=== PATIENT | male | born 1965 | race Caucasian/White ===

== ENCOUNTER 2017-03-06 16:56 | Emergency (ER) | payer BC, OTHER ==
[~2017-03-06] VITALS: Ht 172.7 cm; Wt 93.0 kg
[2017-03-06 17:40] VITALS: BP_SYST 133
[2017-03-06] MEDS ORDERED: NACL 0.9% 1,000 ML IV ONE (18:00)
[2017-03-06] MEDS ORDERED: PROCHLORPERAZINE EDISYLATE 10 MG/2 ML VIAL IVP ONE (18:00)
[2017-03-06] MEDS ORDERED: DIPHENHYDRAMINE INJ 50 MG/ML VIAL IVP ONE (18:00)
[2017-03-06] MEDS ORDERED: PANTOPRAZOLE SODIUM 40 MG/VIAL (PROTONIX) IVP ONE (18:00)
[2017-03-06] MEDS ORDERED: LORazepam 2 MG/ML VIAL (FOR ER USE) ONE (19:28)
[2017-03-06] MEDS ORDERED: LORazepam 2 MG/ML VIAL IVP ONE (19:30)
== END 2017-03-06 20:52 | disposition home or self-care (01) ==
LOC: SED 16:56
DX: G43.909 Migraine, unspecified, not intractable, without status migrainosus (principal); R10.84 Generalized abdominal pain
CPT/HCPCS: 70450; 74020; 96361; 96374; 96375; 99285; C9113; J0780; J1200; J2060; J7030

== ENCOUNTER 2017-04-11 16:27 | Inpatient (IN) | payer BC ==
[~2017-04-11] VITALS: Ht 172.7 cm; Wt 91.7 kg
[2017-04-11 16:34] VITALS: BP_SYST 128
[2017-04-11] MEDS ORDERED: NACL 0.9% 1,000 ML IV ONE (17:30)
[2017-04-11 17:58] LABS: BASOPHILS # (AUTO) 0.1 K/uL (0.0-0.2); BASOPHILS % (AUTO) 0.8 % (0.0-2.0); EOSINOPHILS # (AUTO) 0.2 K/uL (0.0-0.4); EOSINOPHILS % (AUTO) 2.6 % (0.0-4.0); HEMOGLOBIN 14.1 g/dL (14.0-18.0); LYMPHOCYTES # (AUTO) 1.9 K/uL (1.0-5.5); LYMPHOCYTES % (AUTO) 20.8 % (20.5-51.5); MEAN CORPUSCULAR HEMOGLOBIN 29 pg (27-31); MEAN CORPUSCULAR HGB CONC 34 % (32-36); MEAN CORPUSCULAR VOLUME 88 fL (79.0-98.0); MONOCYTES # (AUTO) 0.7 K/uL (0.0-1.0); MONOCYTES % (AUTO) 7.5 % (1.7-9.3); NEUTROPHILS # (AUTO) 6.1 K/uL (1.8-7.7); NEUTROPHILS % (AUTO) 68.3 % (40.0-70.0); PLATELET COUNT (AUTO) 352 K/uL (130-430); RED BLOOD CELL COUNT(AUTO) 4.79 MIL/uL (4.2-6.2); RED CELL DISTRIBUTION WIDTH 15.5 % (9.0-15.0)
[2017-04-11 18:07] LABS: CREATININE 1.28 mg/dL (0.55-1.30); POTASSIUM 4.4 mmol/L (3.5-5.1)
[2017-04-11 18:12] LABS: ALBUMIN 3.2 g/dL (3.4-4.8); TOTAL BILIRUBIN 0.5 mg/dL (0.0-1.0)
[2017-04-11 18:20] LABS: INR 1.1 (0.80-1.20); PROTHROMBIN TIME 10.7 SECS (9.5-12.5)
[2017-04-11] MEDS ORDERED: ASPIRIN 325 MG TABLET PO ONE (19:00)
[2017-04-11] MEDS ORDERED: ENOXAPARIN SODIUM 80 MG/0.8 ML SYRINGE SUBCUT ONE (19:00)
[2017-04-11] MEDS ORDERED: NITROGLYCERIN 1 INCH (GM) OINT. TP ONE (19:00)
[2017-04-11] MEDS ORDERED: FUROSEMIDE 40 MG/4 ML VIAL IVP ONE (19:00)
[2017-04-11 19:01] LABS: BILIRUBIN,URINE NEGATIVE (NEGATIVE); BLOOD, URINE NEGATIVE (NEGATIVE); CLARITY/URINE CLEAR (CLEAR); COLOR,URINE YELLOW (YELLOW); GLUCOSE,URINE NEGATIVE (NEGATIVE); KETONES,URINE NEGATIVE (NEGATIVE); LEUKOCYTE ESTERASE ,URINE NEGATIVE (NEGATIVE); NITRITE, URINE NEGATIVE (NEGATIVE); PROTEIN URINE NEGATIVE (NEGATIVE); UROBILINOGEN,URINE 0.2 (0.2-1.0)
[2017-04-11] MEDS ORDERED: ACETAMINOPHEN 325 MG TABLET PO PRN (20:00)
[2017-04-11] MEDS ORDERED: ALBUTEROL SULFATE 0.083% 2.5 MG/3 ML VIAL.NEB INH PRN (20:00)
[2017-04-11] MEDS ORDERED: ONDANSETRON HCL 4 MG/2 ML VIAL IVP PRN (20:00)
[2017-04-11] MEDS ORDERED: MORPHINE 2 MG/ML INJ. SYRINGE IVP PRN (20:00)
[2017-04-11 21:13] VITALS: BP_SYST 115
[2017-04-11] MEDS ORDERED: ALBMDI INH (21:52)
[2017-04-11] MEDS ORDERED: SULF1TAB48 PO (21:52)
[2017-04-11 22:35] VITALS: BP_SYST 115
[2017-04-12 00:57] VITALS: BP_SYST 129
[2017-04-12 07:00] LABS: BASOPHILS # (AUTO) 0.1 K/uL (0.0-0.2); BASOPHILS % (AUTO) 0.9 % (0.0-2.0); EOSINOPHILS # (AUTO) 0.3 K/uL (0.0-0.4); EOSINOPHILS % (AUTO) 2.9 % (0.0-4.0); HEMATOCRIT 41.2 % (36-54); HEMOGLOBIN 13.6 g/dL (14.0-18.0); LYMPHOCYTES # (AUTO) 2.1 K/uL (1.0-5.5); LYMPHOCYTES % (AUTO) 21.7 % (20.5-51.5); MEAN CORPUSCULAR HEMOGLOBIN 29 pg (27-31); MEAN CORPUSCULAR HGB CONC 33 % (32-36); MEAN CORPUSCULAR VOLUME 89 fL (79.0-98.0); MONOCYTES # (AUTO) 0.7 K/uL (0.0-1.0); MONOCYTES % (AUTO) 7.3 % (1.7-9.3); NEUTROPHILS # (AUTO) 6.3 K/uL (1.8-7.7); NEUTROPHILS % (AUTO) 67.2 % (40.0-70.0); PLATELET COUNT (AUTO) 302 K/uL (130-430); RED BLOOD CELL COUNT(AUTO) 4.64 MIL/uL (4.2-6.2); RED CELL DISTRIBUTION WIDTH 16.1 % (9.0-15.0); WHITE BLOOD COUNT (AUTO) 9.5 K/uL (4.8-10.8)
[2017-04-12 07:20] LABS: CALCIUM 8.8 mg/dL (8.4-11.0); CREATININE 1.34 mg/dL (0.55-1.30); POTASSIUM 3.8 mmol/L (3.5-5.1)
[2017-04-12 07:38] LABS: ALBUMIN 2.8 g/dL (3.4-4.8); TOTAL BILIRUBIN 0.8 mg/dL (0.0-1.0)
[2017-04-12 08:09] VITALS: BP_SYST 125
[2017-04-12] MEDS: ASPIRIN 81 MG TAB.CHEW PO SCH (08:44)
[2017-04-12] MEDS ORDERED: FUROSEMIDE 40 MG/4 ML VIAL IVP ONE (11:45)
[2017-04-12] MEDS: LORazepam 1 MG TABLET PO PRN (12:24)
[2017-04-12 12:41] VITALS: BP_SYST 117
[2017-04-12] MEDS ORDERED: DOCUSATE SODIUM 100 MG CAPSULE PO PRN (15:30)
[2017-04-12] MEDS ORDERED: MILK OF MAGNESIA 30 ML UDC PO ONE (15:30)
[2017-04-12] MEDS ORDERED: CARVEDILOL 6.25 MG TABLET (COREG) PO ONE (16:15)
[2017-04-12] MEDS ORDERED: LOSARTAN POTASSIUM 50 MG TABLET (COZAAR) PO ONE (16:15)
[2017-04-12 16:30] VITALS: BP_SYST 129
[2017-04-12 17:54] LABS: BARBITURATE, URINE NEGATIVE (NEG <=200); BENZODIAZEPINE, URINE NEGATIVE (NEG <=150); CANNABINOID, URINE NEGATIVE (NEG <=50); COCAINE, URINE NEGATIVE (NEG <=150); METHAMPHETAMINES SCREEN,URINE NEGATIVE (NEG <=500); OPIATE, URINE NEGATIVE (NEG <=100); PHENCYCLIDINE SCREEN,URINE NEGATIVE (NEG <=25); UR TRICYCLIC ANTIDEPRESSANTS NEGATIVE (NEG <=300); URINE AMPHETAMINE NEGATIVE (NEG <=500); URINE METHADONE NEGATIVE (NEG <=200); URINE OXYCODONE SCREEN NEGATIVE (NEG <=100); URINE PROPOXYPHENE SCREEN NEGATIVE (NEG <=300)
[2017-04-12 20:00] VITALS: BP_SYST 111
[2017-04-12] MEDS ORDERED: CARVEDILOL 6.25 MG TABLET (COREG) PO SCH (21:00)
[2017-04-13] VITALS: BP_SYST 116
[2017-04-13] MEDS: LORazepam 1 MG TABLET PO PRN (01:30)
[2017-04-13 06:58] LABS: BASOPHILS % (AUTO) 0.6 % (0.0-2.0); EOSINOPHILS # (AUTO) 0.2 K/uL (0.0-0.4); EOSINOPHILS % (AUTO) 2.8 % (0.0-4.0); HEMATOCRIT 45.6 % (36-54); HEMOGLOBIN 14.8 g/dL (14.0-18.0); LYMPHOCYTES # (AUTO) 1.8 K/uL (1.0-5.5); LYMPHOCYTES % (AUTO) 21.7 % (20.5-51.5); MEAN CORPUSCULAR HEMOGLOBIN 28 pg (27-31); MEAN CORPUSCULAR HGB CONC 33 % (32-36); MEAN CORPUSCULAR VOLUME 87 fL (79.0-98.0); MONOCYTES # (AUTO) 0.5 K/uL (0.0-1.0); NEUTROPHILS # (AUTO) 5.8 K/uL (1.8-7.7); NEUTROPHILS % (AUTO) 68.9 % (40.0-70.0); PLATELET COUNT (AUTO) 386 K/uL (130-430); RED BLOOD CELL COUNT(AUTO) 5.24 MIL/uL (4.2-6.2); RED CELL DISTRIBUTION WIDTH 15.6 % (9.0-15.0); WHITE BLOOD COUNT (AUTO) 8.3 K/uL (4.8-10.8)
[2017-04-13 07:20] LABS: CALCIUM 9.6 mg/dL (8.4-11.0); CREATININE 1.47 mg/dL (0.55-1.30); POTASSIUM 4.4 mmol/L (3.5-5.1); THYROID STIMULATING HORMONE 1.52 uIu/mL (0.34-4.82); TOTAL BILIRUBIN 0.6 mg/dL (0.0-1.0)
[2017-04-13 08:05] VITALS: BP_SYST 114
[2017-04-13] MEDS: ASPIRIN 81 MG TAB.CHEW PO SCH (08:57)
[2017-04-13] MEDS ORDERED: LOSARTAN POTASSIUM 50 MG TABLET (COZAAR) PO SCH (09:00)
[2017-04-13] MEDS ORDERED: FUROSEMIDE 40 MG/4 ML VIAL IVP SCH (09:00)
[2017-04-13] MEDS ORDERED: CARVEDILOL 12.5 MG TABLET (COREG) PO SCH (09:00)
[2017-04-13 11:56] VITALS: BP_SYST 107
[2017-04-13] MEDS ORDERED: LOSA50TA3 PO (13:11)
[2017-04-13] MEDS ORDERED: CARV12.548 PO (13:11)
[2017-04-13] MEDS ORDERED: FURO-149 PO (13:12)
[2017-04-13] MEDS ORDERED: ASPI-1063 PO (13:12)
[2017-04-13] MEDS ORDERED: LIP20 PO (13:13)
[2017-04-13 13:14] VITALS: BP_SYST 107
== END 2017-04-13 13:30 | disposition home or self-care (01) | DRG 292 ==
LOC: SED 16:27 → STU 20:00 → OBSVTOIN 04-13 09:51
DX: I50.43 Acute on chronic combined systolic (congestive) and diastolic (congestive) heart failure (principal); I42.0 Dilated cardiomyopathy; J44.9 Chronic obstructive pulmonary disease, unspecified; Z87.891 Personal history of nicotine dependence
CPT/HCPCS: 36415; 71045; 80053; 80061; 80307; 81003; 82150-TC; 83605; 83690-TC; 83735-TC; 83880; 84443-TC; 84484; 85025; 85610-TC; 85730-TC; 87040-TC; 93005; 93306; 94640; 96361; 96372; 96374; 99285; G0378; J1650; J1940; J7030

== ENCOUNTER 2017-04-14 11:56 | Emergency (ER) | payer BC ==
[~2017-04-14] VITALS: Ht 172.7 cm; Wt 91.6 kg
[~2017-04-14 11:56] MED LIST: ASPI-1063 PO; CARV12.548 PO; FURO-149 PO; LIP20 PO; LOSA50TA3 PO
[2017-04-14 12:16] VITALS: BP_SYST 95
--- NOTE | 2017-04-14 12:33 | NUR ---
Patient to ER bed 2 to gown for evaluation. Side rails up. Report given to Cole THOMAS.
--- NOTE | 2017-04-14 12:35 | NUR ---
ER at bedside examining patient.
--- NOTE | 2017-04-14 12:37 | NUR ---
Pt presents c/o SOB while laying flat. Pt recently discharged for CHF. Pt has no acute resp distress noted. Pt has clear lung sounds to auscultation. Pt is not tachypnic or tachycardic. Pt admits to snoring.
--- NOTE | 2017-04-14 13:00 | NUR ---
Chest XR done
[2017-04-14 13:27] LABS: CALCIUM 9.5 mg/dL (8.4-11.0); CREATININE 1.4 mg/dL (0.55-1.30)
--- NOTE | 2017-04-14 13:30 | NUR ---
Dr. Mckoen speaking to regarding ED evaluation.
[2017-04-14 14:00] VITALS: BP_SYST 110
--- NOTE | 2017-04-14 14:00 | NUR ---
Patient given written and verbal discharge instructions and verbalizes understanding. ER MD discussed with patient the results and treatment provided. Patient in stable condition. ID arm band removed. No Rx given. Patient educated on pain management and to follow up with PMD. Pain Scale 0. Opportunity for questions provided and answered.
== END 2017-04-14 14:00 | disposition home or self-care (01) ==
LOC: SED 11:56
DX: G47.30 Sleep apnea, unspecified (principal); F41.9 Anxiety disorder, unspecified; Z79.899 Other long term (current) drug therapy
CPT/HCPCS: 36415; 71045; 80048; 83880; 93005; 99285

== ENCOUNTER 2020-09-15 17:13 | Inpatient (IN) | payer BC ==
[~2020-09-15] VITALS: Ht 175.3 cm; Wt 92.6 kg
[~2020-09-15 17:13] MED LIST changes: -ASPI-1063 PO; +ASPI-1393 PO
[2020-09-15 17:21] VITALS: BP_SYST 156
[2020-09-15] MEDS ORDERED: FUROSEMIDE 20 MG/2 ML VIAL IVP ONE (17:45)
[2020-09-15 17:47] LABS: RED BLOOD CELL COUNT(AUTO) 4.88 MIL/uL (4.2-6.2); WHITE BLOOD COUNT (AUTO) 6.8 K/uL (4.8-10.8)
[2020-09-15 17:59] LABS: BASOPHILS # (AUTO) 0.1 K/uL (0.0-0.2); BASOPHILS % (AUTO) 0.9 % (0.0-2.0); EOSINOPHILS # (AUTO) 0.1 K/uL (0.0-0.4); EOSINOPHILS % (AUTO) 0.9 % (0.0-4.0); HEMATOCRIT 44.4 % (36-54); HEMOGLOBIN 14.6 g/dL (14.0-18.0); LYMPHOCYTES # (AUTO) 1.1 K/uL (1.0-5.5); LYMPHOCYTES % (AUTO) 15.8 % (20.5-51.5); MEAN CORPUSCULAR HEMOGLOBIN 30 pg (27-31); MEAN CORPUSCULAR HGB CONC 33 % (32-36); MEAN CORPUSCULAR VOLUME 91 fL (79.0-98.0); MONOCYTES # (AUTO) 0.8 K/uL (0.0-1.0); MONOCYTES % (AUTO) 11.1 % (1.7-9.3); NEUTROPHILS # (AUTO) 4.8 K/uL (1.8-7.7); NEUTROPHILS % (AUTO) 71.3 % (40.0-70.0); PLATELET COUNT (AUTO) 291 K/uL (130-430); RED CELL DISTRIBUTION WIDTH 16.4 % (9.0-15.0)
[2020-09-15 18:05] LABS: CALCIUM 8.8 mg/dL (8.4-11.0); CREATININE 1.37 mg/dL (0.55-1.30); POTASSIUM 4.7 mmol/L (3.5-5.1)
[2020-09-15] MEDS ORDERED: SACU1TAB7 PO (18:14)
[2020-09-15] MEDS ORDERED: POTA-10 PO (18:14)
[2020-09-15] MEDS ORDERED: ALBMDI INH (18:16)
[2020-09-15 18:22] LABS: TOTAL BILIRUBIN 1.1 mg/dL (0.0-1.0)
[2020-09-15] MEDS ORDERED: ASPIRIN 325 MG TABLET PO ONE (18:30)
[2020-09-15] MEDS ORDERED: ACETAMINOPHEN/CODEINE 300 MG-30 MG TABLET PO ONE (18:30)
[2020-09-15] MEDS ORDERED: NITROGLYCERIN 1 INCH (GM) OINT. TP ONE (18:30)
[2020-09-15] MEDS ORDERED: ENOXAPARIN SODIUM 80 MG/0.8 ML SYRINGE SUBCUT ONE (18:30)
[2020-09-15 19:15] LABS: CREATINE KINASE MB 7.2 ng/mL (0-3.6)
[2020-09-15 21:04] VITALS: BP_SYST 127
[2020-09-15] MEDS ORDERED: NALOXONE HCL 0.4 MG/ML AMP (NARCAN) IVP PRN (21:45)
[2020-09-15] MEDS ORDERED: ALBUTEROL SULFATE 0.083% 2.5 MG/3 ML VIAL.NEB INH PRN (21:45)
[2020-09-15] MEDS ORDERED: ACETAMINOPHEN 325 MG TABLET PO PRN (21:45)
[2020-09-15] MEDS ORDERED: *LOVENOX 1MG/KG Q12H/PHARMACY XX ONE (21:45)
[2020-09-15] MEDS ORDERED: MORPHINE 4 MG INJ. 4 MG/ML VIAL IVP PRN (21:45)
[2020-09-15] MEDS ORDERED: HYDROcodone/ACETAMIN 5-325 MG TAB (NORCO/ VICODIN) PO PRN (21:45)
[2020-09-15 22:29] VITALS: BP_SYST 127
[2020-09-15] MEDS ORDERED: ZOLPIDEM TARTRATE 5 MG TABLET PO PRN (22:45)
[2020-09-15] MEDS ORDERED: LOSARTAN POTASSIUM 50 MG TABLET (COZAAR) PO ONE (22:45)
[2020-09-15] MEDS ORDERED: ENOXAPARIN SODIUM 100 MG/ML SYRINGE SUBCUT SCH (23:00)
[2020-09-15] MEDS: NORMAL SALINE 5 ML DISP.SYRIN IVF SCH (23:17)
[2020-09-16 00:20] VITALS: BP_SYST 113
[2020-09-16] MEDS: NORMAL SALINE 5 ML DISP.SYRIN IVF SCH (06:10)
[2020-09-16 06:50] LABS: BASOPHILS # (AUTO) 0.1 K/uL (0.0-0.2); BASOPHILS % (AUTO) 1.1 % (0.0-2.0); EOSINOPHILS # (AUTO) 0.1 K/uL (0.0-0.4); EOSINOPHILS % (AUTO) 1.8 % (0.0-4.0); HEMATOCRIT 43.5 % (36-54); HEMOGLOBIN 14.2 g/dL (14.0-18.0); LYMPHOCYTES # (AUTO) 1.3 K/uL (1.0-5.5); LYMPHOCYTES % (AUTO) 19.8 % (20.5-51.5); MEAN CORPUSCULAR HEMOGLOBIN 30 pg (27-31); MEAN CORPUSCULAR HGB CONC 33 % (32-36); MEAN CORPUSCULAR VOLUME 91 fL (79.0-98.0); MONOCYTES # (AUTO) 0.3 K/uL (0.0-1.0); NEUTROPHILS # (AUTO) 4.8 K/uL (1.8-7.7); NEUTROPHILS % (AUTO) 72.3 % (40.0-70.0); PLATELET COUNT (AUTO) 254 K/uL (130-430); RED BLOOD CELL COUNT(AUTO) 4.79 MIL/uL (4.2-6.2); RED CELL DISTRIBUTION WIDTH 16.9 % (9.0-15.0); WHITE BLOOD COUNT (AUTO) 6.7 K/uL (4.8-10.8)
[2020-09-16 07:05] LABS: ALBUMIN 2.9 g/dL (3.4-4.8); CALCIUM 8.4 mg/dL (8.4-11.0); CREATININE 1.41 mg/dL (0.55-1.30); TOTAL BILIRUBIN 1.9 mg/dL (0.0-1.0)
[2020-09-16] MEDS ORDERED: ALBUTEROL SULFATE 0.083% 2.5 MG/3 ML VIAL.NEB INH PRN (08:00)
[2020-09-16] MEDS ORDERED: ATORVASTATIN 20 MG TABLET PO SCH (09:00)
[2020-09-16] MEDS ORDERED: ASPIRIN 81 MG TABLET(ECOTRIN) PO SCH (09:00)
[2020-09-16] MEDS ORDERED: ENOXAPARIN SODIUM 40 MG/0.4 ML SYRINGE SUBCUT SCH (09:00)
[2020-09-16] MEDS ORDERED: LOSARTAN POTASSIUM 50 MG TABLET (COZAAR) PO SCH (09:00)
[2020-09-16] MEDS ORDERED: CARVEDILOL 12.5 MG TABLET (COREG) PO SCH (09:00)
[2020-09-16] MEDS ORDERED: FUROSEMIDE 40 MG/4 ML VIAL IVP SCH (09:00)
[2020-09-16] MEDS ORDERED: SACUBITRIL/VALSARTAN 24 MG-26 MG 1 TABLET PO SCH (09:00)
[2020-09-16] MEDS ORDERED: FURO-150 PO (19:21)
[2020-09-16] MEDS ORDERED: SACU1TAB PO (19:21)
[2020-09-16] MEDS ORDERED: CARV3.1246 PO (19:21)
== END 2020-09-16 07:55 | disposition left against medical advice (07) | DRG 281 ==
LOC: SED 17:13 → STU 19:45
PROVIDERS: ADMIT Internal Medicine Hospice and Palliative Medicine; ATTEND Internal Medicine Hospice and Palliative Medicine
DX: I21.4 Non-ST elevation (NSTEMI) myocardial infarction (principal); I42.9 Cardiomyopathy, unspecified; I34.0 Nonrheumatic mitral (valve) insufficiency; E78.5 Hyperlipidemia, unspecified; Z53.29 Procedure and treatment not carried out because of patient's decision for other reasons; Z20.822 Contact with and (suspected) exposure to COVID-19; I11.0 Hypertensive heart disease with heart failure; I50.9 Heart failure, unspecified; Z79.82 Long term (current) use of aspirin; Z79.899 Other long term (current) drug therapy
CPT/HCPCS: 36415; 71045; 80053; 82550; 82553; 83880; 84484; 85025; 85379; 93005; 96365; 96375; 99291; G0378; J1650; J1940; J7613

== ENCOUNTER 2020-09-29 11:05 | Emergency (ER) | payer BC, SELFPAY ==
[~2020-09-29] VITALS: Ht 172.7 cm; Wt 90.7 kg
[~2020-09-29 11:05] MED LIST changes: +ALBMDI INH; +CARV3.1246 PO; +FURO-150 PO; +POTA-10 PO; +SACU1TAB PO; +SACU1TAB7 PO
--- NOTE | 2020-09-29 11:11 | NUR ---
Patient to ER bed 07 to gown for evaluation. Side rails up.
[2020-09-29 11:15] VITALS: BP_SYST 119
--- NOTE | 2020-09-29 11:18 | NUR ---
ER at bedside examining patient.
--- NOTE | 2020-09-29 11:18 | NUR ---
ER at bedside examining patient.
--- NOTE | 2020-09-29 11:20 | NUR ---
Pt. brought himself in with Left flank pain 01/06, states has CHF and stage 3 kidney failure, denies any N/V
--- NOTE | 2020-09-29 11:27 | NUR ---
lab here for blood draw
[2020-09-29 11:28] LABS: BILIRUBIN,URINE NEGATIVE (NEGATIVE); BLOOD, URINE NEGATIVE (NEGATIVE); CLARITY/URINE CLEAR (CLEAR); COLOR,URINE YELLOW (YELLOW); GLUCOSE,URINE NEGATIVE (NEGATIVE); KETONES,URINE NEGATIVE (NEGATIVE); LEUKOCYTE ESTERASE ,URINE NEGATIVE (NEGATIVE); NITRITE, URINE NEGATIVE (NEGATIVE); PH,URINE 5.5 (5.0-8.0); PROTEIN URINE NEGATIVE (NEGATIVE); UROBILINOGEN,URINE 0.2 (0.2-1.0)
[2020-09-29] MEDS ORDERED: MORPHINE 4 MG INJ. 4 MG/ML VIAL IM ONE (11:30)
--- NOTE | 2020-09-29 11:43 | NUR ---
pt. back from CT scan
[2020-09-29 11:47] LABS: BASOPHILS # (AUTO) 0.2 K/uL (0.0-0.2); BASOPHILS % (AUTO) 1.4 % (0.0-2.0); EOSINOPHILS # (AUTO) 0.1 K/uL (0.0-0.4); EOSINOPHILS % (AUTO) 0.5 % (0.0-4.0); HEMATOCRIT 47.5 % (36-54); HEMOGLOBIN 15.5 g/dL (14.0-18.0); LYMPHOCYTES # (AUTO) 1.1 K/uL (1.0-5.5); LYMPHOCYTES % (AUTO) 9.9 % (20.5-51.5); MEAN CORPUSCULAR HEMOGLOBIN 30 pg (27-31); MEAN CORPUSCULAR HGB CONC 33 % (32-36); MEAN CORPUSCULAR VOLUME 91 fL (79.0-98.0); MONOCYTES # (AUTO) 0.9 K/uL (0.0-1.0); MONOCYTES % (AUTO) 8.3 % (1.7-9.3); NEUTROPHILS # (AUTO) 8.5 K/uL (1.8-7.7); NEUTROPHILS % (AUTO) 79.9 % (40.0-70.0); PLATELET COUNT (AUTO) 321 K/uL (130-430); RED BLOOD CELL COUNT(AUTO) 5.24 MIL/uL (4.2-6.2); RED CELL DISTRIBUTION WIDTH 17.1 % (9.0-15.0); WHITE BLOOD COUNT (AUTO) 10.7 K/uL (4.8-10.8)
[2020-09-29 11:48] LABS: CALCIUM 8.6 mg/dL (8.4-11.0); CREATININE 1.35 mg/dL (0.55-1.30); POTASSIUM 4.7 mmol/L (3.5-5.1)
[2020-09-29 11:51] LABS: INR 1.1 (0.80-1.20); PROTHROMBIN TIME 11.6 SECS (9.5-12.5)
[2020-09-29 11:54] LABS: ALBUMIN 2.9 g/dL (3.4-4.8); TOTAL BILIRUBIN 0.7 mg/dL (0.0-1.0)
[2020-09-29 11:55] LABS: C-REACTIVE PROTEIN QUANT 1.1 mg/dL (0-0.5)
[2020-09-29] MEDS ORDERED: HYDR-3917 PO (12:33)
[2020-09-29 12:48] VITALS: BP_SYST 119
--- NOTE | 2020-09-29 12:49 | NUR ---
Patient given written and verbal discharge instructions and verbalizes understanding. ER MD discussed with patient the results and treatment provided. Patient in stable condition. ID arm band removed. Rx of [place] given. Patient educated on pain management and to follow up with PMD. Pain Scale 3/10. Opportunity for questions provided and answered. Medication side effect fact sheet provided.
== END 2020-09-29 12:49 | disposition home or self-care (01) ==
LOC: SED 11:05
DX: R10.9 Unspecified abdominal pain (principal); R11.2 Nausea with vomiting, unspecified; I50.9 Heart failure, unspecified; Z79.899 Other long term (current) drug therapy
CPT/HCPCS: 36415; 74176; 76376; 80053; 81003; 82150; 83605; 83690; 85025; 85610; 85730; 86140; 96372; 99284; J2270

== ENCOUNTER 2022-03-25 08:03 | Emergency (ER) | payer BC ==
[~2022-03-25] VITALS: Ht 172.7 cm; Wt 88.5 kg
[~2022-03-25 08:03] MED LIST changes: +HYDR-3917 PO; -POTA-10 PO; +POTA-195 PO
[2022-03-25 08:06] VITALS: BP_SYST 139
[2022-03-25] MEDS ORDERED: HYDROcodone/ACETAMIN 10-325 MG TAB PO ONE (09:00)
[2022-03-25] MEDS ORDERED: KETOROLAC TROMETHAMINE 60 MG/2 ML VIAL IM ONE (09:00)
[2022-03-25 09:46] LABS: BASOPHILS # (AUTO) 0.1 K/uL (0.0-0.2); BASOPHILS % (AUTO) 0.7 % (0.0-2.0); EOSINOPHILS # (AUTO) 0.1 K/uL (0.0-0.4); HEMATOCRIT 42.9 % (36-54); HEMOGLOBIN 14.3 g/dL (14.0-18.0); LYMPHOCYTES # (AUTO) 0.7 K/uL (1.0-5.5); LYMPHOCYTES % (AUTO) 8.5 % (20.5-51.5); MEAN CORPUSCULAR HEMOGLOBIN 32 pg (27-31); MEAN CORPUSCULAR HGB CONC 33 % (32-36); MEAN CORPUSCULAR VOLUME 95 fL (79.0-98.0); MONOCYTES # (AUTO) 0.6 K/uL (0.0-1.0); MONOCYTES % (AUTO) 7.3 % (1.7-9.3); NEUTROPHILS % (AUTO) 82.5 % (40.0-70.0); PLATELET COUNT (AUTO) 255 K/uL (130-430); RED BLOOD CELL COUNT(AUTO) 4.54 MIL/uL (4.2-6.2); RED CELL DISTRIBUTION WIDTH 14.9 % (9.0-15.0); WHITE BLOOD COUNT (AUTO) 8.5 K/uL (4.8-10.8)
[2022-03-25 09:53] LABS: ANION GAP 9 (5-15); CALCIUM 9.2 mg/dL (8.4-11.0); CHLORIDE 105 mmol/L (98-107); CREATININE 0.89 mg/dL (0.55-1.30); GLUCOSE 115 mg/dL (70-99); UREA NITROGEN, BLOOD 14 mg/dL (8-21)
[2022-03-25 10:01] LABS: ALANINE AMINOTRANSFERASE 36 U/L (12-78); ALBUMIN 3.8 g/dL (3.4-4.8); ASPARTATE AMINOTRANSFERASE 32 U/L (10-37); GFR AFRICAN AMERICAN 113 mL/min (>90); TOTAL BILIRUBIN 0.8 mg/dL (0.0-1.0)
[2022-03-25] MEDS ORDERED: IBUP-1971 PO (11:13)
[2022-03-25] MEDS ORDERED: HYDR-3917 PO (11:13)
[2022-03-25 11:19] VITALS: BP_SYST 135
== END 2022-03-25 11:19 | disposition home or self-care (01) ==
LOC: SED 08:03
DX: S22.31XA Fracture of one rib, right side, initial encounter for closed fracture (principal); Z79.899 Other long term (current) drug therapy; W11.XXXA Fall on and from ladder, initial encounter; Y93.89 Activity, other specified; Y92.89 Other specified places as the place of occurrence of the external cause; Y99.8 Other external cause status
CPT/HCPCS: 99285; 71250; 80053; 85025; 84484; 36415; 93005; 76376; 96372; J1885

== ENCOUNTER 2022-04-11 07:38 | Inpatient (IN) | payer BC ==
[~2022-04-11] VITALS: Ht 172.7 cm; Wt 88.9 kg
[~2022-04-11 07:38] MED LIST changes: +IBUP-1971 PO
[2022-04-11 07:42] VITALS: BP_SYST 152
--- NOTE | 2022-04-11 07:45 | NUR ---
Patient to ER bed 03 to gown for evaluation. Side rails up. Report given to Milagros THOMAS .
--- NOTE | 2022-04-11 07:56 | NUR ---
Dr Carey evaluating patient at bedside
--- NOTE | 2022-04-11 08:00 | NUR ---
JERE JOLLEY EXAMINED PT
--- NOTE | 2022-04-11 08:05 | NUR ---
PT PRESENTS TO ED BYSELF, ACCORDING TO PT DIFFICULTY BREATHING SINCE 4PM YESTERDAY, COUGHING HURTS, PT HAS HX OF PE BLOOD CLOT TO HEART STATED BY PT. PT IS HAVING MODERATE TACHYPNEA, IS NOW ON 2LPM NC. PT DOES NOT USE O2 AT HOME. BP IS NORMAL HR IS NORMAL VSS.
[2022-04-11 08:40] LABS: BASOPHILS # (AUTO) 0.1 K/uL (0.0-0.2); BASOPHILS % (AUTO) 0.9 % (0.0-2.0); EOSINOPHILS % (AUTO) 0.2 % (0.0-4.0); HEMATOCRIT 39.2 % (36-54); HEMOGLOBIN 13.1 g/dL (14.0-18.0); LYMPHOCYTES # (AUTO) 0.5 K/uL (1.0-5.5); LYMPHOCYTES % (AUTO) 7.1 % (20.5-51.5); MEAN CORPUSCULAR HEMOGLOBIN 32 pg (27-31); MEAN CORPUSCULAR HGB CONC 33 % (32-36); MEAN CORPUSCULAR VOLUME 95 fL (79.0-98.0); MONOCYTES # (AUTO) 0.8 K/uL (0.0-1.0); MONOCYTES % (AUTO) 11.4 % (1.7-9.3); NEUTROPHILS # (AUTO) 5.9 K/uL (1.8-7.7); NEUTROPHILS % (AUTO) 80.4 % (40.0-70.0); PLATELET COUNT (AUTO) 238 K/uL (130-430); RED BLOOD CELL COUNT(AUTO) 4.15 MIL/uL (4.2-6.2); RED CELL DISTRIBUTION WIDTH 14.8 % (9.0-15.0); WHITE BLOOD COUNT (AUTO) 7.4 K/uL (4.8-10.8)
[2022-04-11 08:46] LABS: CALCIUM 8.7 mg/dL (8.4-11.0); CREATININE 1.03 mg/dL (0.55-1.30)
[2022-04-11 08:48] LABS: INR 1.1 (0.80-1.20)
[2022-04-11 08:50] LABS: ALBUMIN 3.4 g/dL (3.4-4.8); TOTAL BILIRUBIN 1.4 mg/dL (0.0-1.0)
[2022-04-11] MEDS ORDERED: iohexoL 350 mgI/mL, 100 ML INFUS..BTL IV ONE (08:59)
--- NOTE | 2022-04-11 09:00 | NUR ---
PT TO CT
--- NOTE | 2022-04-11 09:13 | NUR ---
BACK FROM CT, BREAKFAST GIVEN PT RESTING COMFORTBLY, PT HOOKED BACK UP TO BP,HEART AND SPO2 MONITOR. WILL CONT TO MONITOR.
[2022-04-11] MEDS ORDERED: cefTRIAXone 1 GM IVPB PREMIX 50 ML IV ONE (09:45)
--- NOTE | 2022-04-11 10:30 | NUR ---
DR VARELA AT BEDSIDE
--- NOTE | 2022-04-11 10:48 | NUR ---
DR JEFFRIES EVALUATING PT AT BEDSIDE
[2022-04-11] MEDS: HYDROcodone/ACETAMIN 5-325 MG TAB (NORCO/ VICODIN) PO PRN ×4 (10:53→19:16)
--- NOTE | 2022-04-11 11:56 | NUR ---
ECHO BEING DONE AT BEDSIDE, TOLERATING WELL.
[2022-04-11] MEDS: AZITHROMYCIN 500 MG in NS 250 ML IV SCH (15:15)
--- NOTE | 2022-04-11 15:23 | NUR ---
PT ASLEEP NO COMPLAINTS, VSS
[2022-04-11] MEDS ORDERED: APIXABAN 2.5 MG TABLET PO ONE (15:30)
[2022-04-11] MEDS ORDERED: AZITHROMYCIN 500 MG/VIAL (ZITHROMAX) IV ONE (16:47)
[2022-04-11 17:31] VITALS: BP_SYST 126
--- NOTE | 2022-04-11 18:14 | NUR ---
DINNER TRAY GIVEN
--- NOTE | 2022-04-11 18:19 | NUR ---
pt vss stable, pt has dinner tray, pt is c/o right rib sharp pain 9/10. pt requesting pain medication but is not due until q8 as order. page center out to hospitalist to change or update prn for pt. waiting for call back and will continue to monitor pt. no other complaints from pt besides the pain.
[2022-04-11] MEDS: IPRATROPIUM/ALBUTEROL SULFATE 3 ML AMPUL.NEB (DUONEB) INH SCH ×2 (19:00→23:38)
--- NOTE | 2022-04-11 19:22 | NUR ---
REPORT PASSED ONTO TOSHIA THOMAS
[2022-04-11] MEDS: BUDESONIDE 0.5 MG/2 ML AMPUL.NEB INH SCH (20:41)
[2022-04-11] MEDS: APIXABAN 2.5 MG TABLET PO SCH (20:51)
[2022-04-11 20:53] VITALS: BP_SYST 135
[2022-04-11] MEDS ORDERED: FUROSEMIDE 20 MG TABLET PO SCH (21:00)
--- NOTE | 2022-04-11 21:15 | NUR ---
Shift Summary: patient is AAOX4. vitals are stable. patient arrived to unit approx. 2030. patient updated on plan of care. patient states he has no questions or concerns at this time. patient requested for sleep medication. Dr. Desai paged regarding patient request. Dr. Desai placed orders for restoril 15mg prn for sleep. patient informed to use call light if patient needs to get up for any reason due to patient a high fall risk. patient states he understands. will continue to monitor. call light within reach, bed set to low, locked, and alarm on .
[2022-04-11] MEDS: TEMAZEPAM 15 MG CAPSULE PO PRN (21:54)
[2022-04-12] VITALS: BP_SYST 129
[2022-04-12] MEDS: IPRATROPIUM/ALBUTEROL SULFATE 3 ML AMPUL.NEB (DUONEB) INH SCH ×6 (03:00→23:00)
[2022-04-12] MEDS: HYDROcodone/ACETAMIN 5-325 MG TAB (NORCO/ VICODIN) PO PRN ×3 (03:16→19:48)
[2022-04-12] MEDS: BUDESONIDE 0.5 MG/2 ML AMPUL.NEB INH SCH ×2 (07:38→19:59)
[2022-04-12 07:54] VITALS: BP_SYST 125
[2022-04-12 08:00] VITALS: BP_SYST 125
[2022-04-12] MEDS: APIXABAN 2.5 MG TABLET PO SCH ×2 (08:17→21:20)
[2022-04-12] MEDS: cefTRIAXone 1 GM in D5W 50 ML IV SCH (08:18)
[2022-04-12] MEDS ORDERED: ALBUTEROL SULFATE 0.083% 2.5 MG/3 ML VIAL.NEB INH PRN (08:30)
[2022-04-12 08:33] LABS: BASOPHILS # (AUTO) 0.1 K/uL (0.0-0.2); BASOPHILS % (AUTO) 0.5 % (0.0-2.0); EOSINOPHILS % (AUTO) 0.3 % (0.0-4.0); HEMATOCRIT 38.4 % (36-54); HEMOGLOBIN 12.8 g/dL (14.0-18.0); LYMPHOCYTES # (AUTO) 0.8 K/uL (1.0-5.5); LYMPHOCYTES % (AUTO) 8.2 % (20.5-51.5); MEAN CORPUSCULAR HEMOGLOBIN 32 pg (27-31); MEAN CORPUSCULAR HGB CONC 33 % (32-36); MEAN CORPUSCULAR VOLUME 96 fL (79.0-98.0); MONOCYTES # (AUTO) 0.8 K/uL (0.0-1.0); MONOCYTES % (AUTO) 8.1 % (1.7-9.3); NEUTROPHILS # (AUTO) 7.8 K/uL (1.8-7.7); NEUTROPHILS % (AUTO) 82.9 % (40.0-70.0); PLATELET COUNT (AUTO) 227 K/uL (130-430); RED CELL DISTRIBUTION WIDTH 14.7 % (9.0-15.0); WHITE BLOOD COUNT (AUTO) 9.4 K/uL (4.8-10.8)
[2022-04-12 08:38] LABS: CALCIUM 8.7 mg/dL (8.4-11.0); CREATININE 1.02 mg/dL (0.55-1.30)
[2022-04-12 08:43] LABS: ALBUMIN 3.1 g/dL (3.4-4.8); TOTAL BILIRUBIN 1.3 mg/dL (0.0-1.0)
[2022-04-12] MEDS ORDERED: ATORVASTATIN 20 MG TABLET PO ONE (08:45)
[2022-04-12] MEDS ORDERED: CARV6.2554 PO (08:48)
[2022-04-12] MEDS ORDERED: ROSU10TA2 PO (08:48)
[2022-04-12] MEDS ORDERED: ESCI10TA PO (08:48)
[2022-04-12] MEDS ORDERED: APIX5TAB PO (08:48)
[2022-04-12] MEDS: SACUBITRIL/VALSARTAN 24 MG-26 MG 1 TABLET PO SCH ×2 (09:00→21:17)
[2022-04-12] MEDS ORDERED: FUROSEMIDE 40 MG TABLET PO ONE (09:00)
[2022-04-12] MEDS ORDERED: cefTRIAXone 1 GM in D5W 50 ML IV SCH (09:00)
[2022-04-12] MEDS ORDERED: CARVEDILOL 6.25 MG TABLET (COREG) PO ONE (09:00)
[2022-04-12] MEDS ORDERED: CARVEDILOL 6.25 MG TABLET (COREG) PO SCH (09:00)
[2022-04-12 13:00] VITALS: BP_SYST 119
[2022-04-12] MEDS: AZITHROMYCIN 500 MG in NS 250 ML IV SCH (16:07)
[2022-04-12 16:16] VITALS: BP_SYST 123
[2022-04-12 20:00] VITALS: BP_SYST 119
--- NOTE | 2022-04-12 20:00 | NUR ---
INITIAL NOTES: PT IS AWAKE ,COMFORTABLE;VITALS ARE STABLE ; ASSESSMENT COMPLETED ;ON O2 2.5 L AT THIS TIME SAT 94% , BED IN LOW AND LOCK POSITION , CALL LYNNE IN REACH ; ENCOURAGED PT TO CALL FOR ASSIST .
--- NOTE | 2022-04-12 21:15 | NUR ---
DUE MEDS GIVEN , PT STATED" PLEASE DONT WAKE ME UNTIL 4 O CLOCK , INFORMED HIM THAT RN HAS TO ASSESS HIS VITALS AFTER 12 MN , PT STATED " NO , PLEASE DO IT AFTER 4 AM ".
[2022-04-12] MEDS: CARVEDILOL 6.25 MG TABLET (COREG) PO SCH (21:18)
[2022-04-12] MEDS: TEMAZEPAM 15 MG CAPSULE PO PRN (21:20)
--- NOTE | 2022-04-12 23:15 | NUR ---
RN ROUNDS: PTS TELEMONITOR WAS OFF , WENT TO FIX IT PT WAS NOT HAPPY , INFORMED HIM THE NEED TO FIX IT , PT REQUESTED AGAIN NOT TO WAKE HIM UP UNTIL MORNING .
--- NOTE | 2022-04-13 00:30 | NUR ---
RN ROUNDS: NOTICED PTS NASAL CANNULA IS NOT ON , WAKE UP THE PT AND PLACE O2 BACK , PT WAS NOT HAPPY , PT REFUSED TO CHECK HIS VITALS .
[2022-04-13] MEDS: IPRATROPIUM/ALBUTEROL SULFATE 3 ML AMPUL.NEB (DUONEB) INH SCH ×3 (03:00→11:28)
--- NOTE | 2022-04-13 04:20 | NUR ---
PT CALLED : PT CALLED AND STATED HE WANTS TO LEAVE AGAINST MEDICAL ADVICE , I WENT TO THE ROOM AND TALKED WITH THE PT , PT STATED HE COULDN'T ABLE TO SLEEP FOR THE LAST 2 NIGHT EVERY HR SOMEONE IS COMING AND DISTURB HIS SLEEP , ALSO PT STATED SOME ONE IS SLAMMING THE DOOR OUTSIDE , INFORMED HIM THAT THOSE DOORS ARE AUTOMATIC DOORS AND CLOSE BY ITSELF .ALSO PT STATED HE NEEDS SOMETHING FOR HIS ANXIETY AND PAIN , I APOLOGIZED TO HIM FOR THE INCONVENIENCE , INFORMED HIM THAT HE NEEDS TO BE ON ANTIBIOTICS FOR HIS INFECTION AND HE IS CURRENTLY ON O2 2.5 L , INFORMED HIM I WILL CALL THE MD AND ASK FOR ANXIETY MEDICATION.AND WILL GIVE PAIN MEDICATION .PT AGREED TO IT . PT IS RECEIVING BREATHING TREATMENT NOW .
--- NOTE | 2022-04-13 04:24 | NUR ---
HIGH ALERT NOTE: Called ISAAK Moraes back at [phone] identified within the medical roster to verify physician authenticity.
[2022-04-13] MEDS: HYDROcodone/ACETAMIN 5-325 MG TAB (NORCO/ VICODIN) PO PRN (04:29)
[2022-04-13] MEDS ORDERED: LORazepam 1 MG TABLET PO ONE (04:30)
[2022-04-13 04:32] VITALS: BP_SYST 108
--- NOTE | 2022-04-13 07:45 | NUR ---
CLOSING NOTES: PT REFUSED TO DO LABS PER FILLER LEAF CUTTER LONG PER TECH PT ASKED HIM TO COME BACK AT 10 AM . DAY SHIFT RN MADE AWARE.
[2022-04-13] MEDS: BUDESONIDE 0.5 MG/2 ML AMPUL.NEB INH SCH (07:52)
--- NOTE | 2022-04-13 07:55 | NUR ---
Patient received awake and alert, able to communicate needs. On tele, SR on monitor. Patient has no edema to extremities. Patient received on 2.5 - 2L nasal canula, tolerating well. Patient is continent GI/. Patient is ambulatory without assistive device with steady gait. Patient verbalized wanting to no be disturbed. Patient verified he refused AM labs as it was too early. Patient denies pain at this time.
[2022-04-13 08:00] VITALS: BP_SYST 102
[2022-04-13] MEDS ORDERED: ATORVASTATIN 20 MG TABLET PO SCH (09:00)
[2022-04-13] MEDS ORDERED: FUROSEMIDE 40 MG TABLET PO SCH (09:00)
[2022-04-13] MEDS: cefTRIAXone 1 GM in D5W 50 ML IV SCH (09:59)
[2022-04-13] MEDS: CARVEDILOL 6.25 MG TABLET (COREG) PO SCH (10:00)
--- NOTE | 2022-04-13 10:00 | NUR ---
Patient removed nasal canula, denies sob/ respiratory distress. 94% on room air
[2022-04-13] MEDS: APIXABAN 2.5 MG TABLET PO SCH (10:01)
[2022-04-13] MEDS: SACUBITRIL/VALSARTAN 24 MG-26 MG 1 TABLET PO SCH (10:01)
[2022-04-13 10:23] LABS: BASOPHILS % (AUTO) 0.5 % (0.0-2.0); EOSINOPHILS # (AUTO) 0.1 K/uL (0.0-0.4); HEMATOCRIT 36.6 % (36-54); HEMOGLOBIN 12.4 g/dL (14.0-18.0); LYMPHOCYTES # (AUTO) 0.6 K/uL (1.0-5.5); MEAN CORPUSCULAR HEMOGLOBIN 32 pg (27-31); MEAN CORPUSCULAR HGB CONC 34 % (32-36); MEAN CORPUSCULAR VOLUME 95 fL (79.0-98.0); MONOCYTES # (AUTO) 0.5 K/uL (0.0-1.0); MONOCYTES % (AUTO) 6.2 % (1.7-9.3); NEUTROPHILS # (AUTO) 6.2 K/uL (1.8-7.7); NEUTROPHILS % (AUTO) 83.3 % (40.0-70.0); PLATELET COUNT (AUTO) 231 K/uL (130-430); RED BLOOD CELL COUNT(AUTO) 3.85 MIL/uL (4.2-6.2); RED CELL DISTRIBUTION WIDTH 14.7 % (9.0-15.0); WHITE BLOOD COUNT (AUTO) 7.4 K/uL (4.8-10.8)
[2022-04-13 10:52] LABS: ALBUMIN 2.8 g/dL (3.4-4.8); CALCIUM 8.7 mg/dL (8.4-11.0); CREATININE 0.81 mg/dL (0.55-1.30); TOTAL BILIRUBIN 0.8 mg/dL (0.0-1.0)
[2022-04-13 12:00] VITALS: BP_SYST 109
[2022-04-13] MEDS ORDERED: AMOX500C2 PO (14:24)
[2022-04-13] MEDS ORDERED: ZIT250 PO (14:24)
--- NOTE | 2022-04-13 14:26 | NUR ---
Patient requested to ambulate on room air with pulse oximeter monitoring. Ambulated with patient for x1 lap around the unit. Patient O2 sat remained 94 %
[2022-04-13 14:38] VITALS: BP_SYST 109
--- NOTE | 2022-04-13 15:15 | NUR ---
Discharge order noted. Discharge packet reviewed with patient at bedside. Discussed follow up care, s/sx that would warrant return to ER, new/continued/stopped medications, diet/activity and hygiene recommendations. Discussed at length abstinence from alcohol and abstaining from high fall risk situations like ladder climbing. Patient verbalized understanding and participated actively in teaching. Verbalized he does not drink "hard liquor" only beer. Educated on alcohol of any kind impairing motor function and cognitive thinking. IV removed with catheter intact. ID wrist band removed. Patient informed son and about discharge. Patient ambulated to exit with author of this note with steady gait, and no respiratory distress noted. Patient was picked up with spouse. All questions/concerns addressed
== END 2022-04-13 15:10 | disposition home or self-care (01) | DRG 205 ==
LOC: SED 07:38 → STU 12:18
PROVIDERS: ADMIT Specialist; ATTEND Specialist
DX: S27.321A Contusion of lung, unilateral, initial encounter (principal); I50.43 Acute on chronic combined systolic (congestive) and diastolic (congestive) heart failure; J18.9 Pneumonia, unspecified organism; J96.01 Acute respiratory failure with hypoxia; R04.2 Hemoptysis; I42.0 Dilated cardiomyopathy; S29.9XXA Unspecified injury of thorax, initial encounter; I11.0 Hypertensive heart disease with heart failure; E78.5 Hyperlipidemia, unspecified; K76.0 Fatty (change of) liver, not elsewhere classified; E66.9 Obesity, unspecified; I34.0 Nonrheumatic mitral (valve) insufficiency; I36.1 Nonrheumatic tricuspid (valve) insufficiency; X58.XXXA Exposure to other specified factors, initial encounter; I10 Essential (primary) hypertension; Z20.822 Contact with and (suspected) exposure to COVID-19; Z86.711 Personal history of pulmonary embolism; Z79.01 Long term (current) use of anticoagulants; Z79.891 Long term (current) use of opiate analgesic; Z79.1 Long term (current) use of non-steroidal anti-inflammatories (NSAID); Z79.899 Other long term (current) drug therapy; Z79.82 Long term (current) use of aspirin; Z68.29 Body mass index [BMI] 29.0-29.9, adult; Y93.89 Activity, other specified; Y92.89 Other specified places as the place of occurrence of the external cause; Y99.8 Other external cause status
CPT/HCPCS: 36415; 71045; 71275; 76376; 80053; 83605; 83880; 85025; 85610-TC; 85730-TC; 87040; 93005; 93306; 94640; 94760; 99285; G0378; J0456; J0696; J7050; J7060; J7613; J7626; Q9967

== ENCOUNTER 2022-04-22 02:52 | Inpatient (IN) | payer BC ==
[~2022-04-22] VITALS: Ht 175.3 cm; Wt 89.8 kg
[~2022-04-22 02:52] MED LIST changes: -ALBMDI INH; +AMOX500C2 PO; +APIX5TAB PO; -ASPI-1393 PO; -CARV12.548 PO; -CARV3.1246 PO; +CARV6.2554 PO; +ESCI10TA PO; -FURO-149 PO; -HYDR-3917 PO; -IBUP-1971 PO; -LIP20 PO; -LOSA50TA3 PO; +ROSU10TA2 PO; -SACU1TAB PO; +ZIT250 PO
[2022-04-22 03:03] VITALS: BP_SYST 133
--- NOTE | 2022-04-22 03:05 | NUR ---
Patient to ER bed 08 to gown for evaluation. Side rails up. Report given to MARTHA ENGLISH.
--- NOTE | 2022-04-22 03:05 | NUR ---
Received report from MARTHA Gonzalez; assuming care of patient at this time.
--- NOTE | 2022-04-22 03:06 | NUR ---
CHRISTIANA Casas at bedside.
--- NOTE | 2022-04-22 03:06 | NUR ---
Patient presents to ED from home with c/o SOB, abd bloating, and swelling in left leg x1 day. Patient reports pain 6/10 dull localized pain in right side posterior lower back. Patient states "I started having shortness of breath around 7 pm last night and its gotten worse since then." Patient reports hx of CHF, [place] in 2020, EF 30%, PE x2 years ago. Patient A/Ox4, ambulatory, resp even with labored breathing at this time. ER MD Casas made aware.
--- NOTE | 2022-04-22 03:10 | NUR ---
EKG performed at by CHRISTIANA link. ER MD Casas given copy of EKG for review.
--- NOTE | 2022-04-22 03:34 | NUR ---
# 20 gauge angiocath placed to the right AC. Use of asceptic technique. Opsite placed over site. Blood return noted. Flushed with 10 cc of normal saline. No evidence of infiltration noted. Patient tolerated well.
--- NOTE | 2022-04-22 03:36 | NUR ---
Radiology at bedside performing chest xray.
--- NOTE | 2022-04-22 03:51 | NUR ---
Lab at bedside.
[2022-04-22 04:09] LABS: BASOPHILS # (AUTO) 0.1 K/uL (0.0-0.2); BASOPHILS % (AUTO) 2.2 % (0.0-2.0); EOSINOPHILS # (AUTO) 0.1 K/uL (0.0-0.4); HEMATOCRIT 40.2 % (36-54); HEMOGLOBIN 13.5 g/dL (14.0-18.0); LYMPHOCYTES % (AUTO) 20.5 % (20.5-51.5); MEAN CORPUSCULAR HEMOGLOBIN 32 pg (27-31); MEAN CORPUSCULAR HGB CONC 34 % (32-36); MEAN CORPUSCULAR VOLUME 94 fL (79.0-98.0); MONOCYTES # (AUTO) 0.4 K/uL (0.0-1.0); MONOCYTES % (AUTO) 7.7 % (1.7-9.3); NEUTROPHILS # (AUTO) 3.2 K/uL (1.8-7.7); NEUTROPHILS % (AUTO) 66.6 % (40.0-70.0); PLATELET COUNT (AUTO) 361 K/uL (130-430); RED BLOOD CELL COUNT(AUTO) 4.27 MIL/uL (4.2-6.2); RED CELL DISTRIBUTION WIDTH 14.9 % (9.0-15.0); WHITE BLOOD COUNT (AUTO) 4.9 K/uL (4.8-10.8)
[2022-04-22 04:12] LABS: ANION GAP 11 (5-15); CALCIUM 8.8 mg/dL (8.4-11.0); CHLORIDE 103 mmol/L (98-107); CREATININE 0.88 mg/dL (0.55-1.30); GLUCOSE 124 mg/dL (70-99); UREA NITROGEN, BLOOD 15 mg/dL (8-21)
[2022-04-22] MEDS ORDERED: NITROGLYCERIN 1 INCH (GM) OINT. TP ONE (04:15)
[2022-04-22] MEDS ORDERED: cefTRIAXone 1 GM in D5W 50 ML IV ONE (04:15)
[2022-04-22] MEDS ORDERED: FUROSEMIDE 20 MG/2 ML VIAL IVP ONE (04:15)
[2022-04-22 04:18] LABS: GFR AFRICAN AMERICAN 114 mL/min (>90)
[2022-04-22 04:31] LABS: ALANINE AMINOTRANSFERASE 48 U/L (12-78); ALBUMIN 3.4 g/dL (3.4-4.8); ASPARTATE AMINOTRANSFERASE 32 U/L (10-37); TOTAL BILIRUBIN 0.3 mg/dL (0.0-1.0)
[2022-04-22] MEDS ORDERED: cefTRIAXone 1 GM VIAL ONE (04:39)
[2022-04-22] MEDS ORDERED: NITROGLYCERIN 1 INCH (GM) OINT. ONE (04:51)
--- NOTE | 2022-04-22 06:11 | NUR ---
Admit bed requested Patient will be admitted to care of . Admitted to TELE unit. Diagnosis CHF Inpatient (Yes or No) Y Observation (Yes or No) N Orientation concerns or request close to nursing station (Yes or No) N Covid Status NEGATIVE On vent or bipap N Isolation requirements N Needs a sitter N From Home (Yes or if No enter name of facility) HOME Requires Dialysis (Yes or No) N Med Rec Completed (Yes of No) Y
[2022-04-22] MEDS ORDERED: LORazepam 2 MG/ML VIAL IVP ONE (06:15)
--- NOTE | 2022-04-22 07:13 | NUR ---
Report given to MARTHA Fox; all questions answered at this time.
--- NOTE | 2022-04-22 07:15 | NUR ---
RECEIVED PT FROM MARTHA ENGLISH. ASSUMED CARE.
--- NOTE | 2022-04-22 07:38 | NUR ---
REQUESTED PT MEDICATION LIST. PT STATED IT IS NOT AVAILABLE TO HIM AT THIS TIME. HE WILL HAVE A FAMILY MEMBER BRING IT TO THE HOSPITAL LATER.
--- NOTE | 2022-04-22 09:40 | NUR ---
DR. BOOKER MET WITH AND ASSESSED PT.
[2022-04-22] MEDS ORDERED: IPRATROPIUM/ALBUTEROL SULFATE 3 ML AMPUL.NEB (DUONEB) INH PRN (09:45)
--- NOTE | 2022-04-22 09:48 | NUR ---
MED REC COMPLETED.
[2022-04-22 09:54] VITALS: BP_SYST 129
--- NOTE | 2022-04-22 10:30 | NUR ---
SCHEDULED MED GIVEN AND TOLERATED WELL.
--- NOTE | 2022-04-22 10:40 | NUR ---
ADMISSION: The patient, JV CRUZ, 56 y/o, M admitted by YAHAIRA MCBRIDE MD, was given written information regarding hospital policies, unit procedures and contact persons. Valuables were checked and VS obtained.
--- NOTE | 2022-04-22 10:47 | NUR ---
Patient will be admitted to [facility]. Admitted to TELEMETRY unit. Will go to room 105A. Belongings list completed. Complete and up to date summary report printed. SBAR report to be given at bedside with opportunity for questions.
[2022-04-22 11:14] VITALS: BP_SYST 127
[2022-04-22] MEDS ORDERED: CARVEDILOL 6.25 MG TABLET (COREG) PO ONE (13:00)
--- NOTE | 2022-04-22 13:00 | NUR ---
nurse note patient in bed, eyes closed, respirations even, non labored, bed in low and locked position, call light within reach, bed alarm on. denies any pain or discomfort
[2022-04-22 15:51] VITALS: BP_SYST 128
--- NOTE | 2022-04-22 17:33 | NUR ---
02 lowered patient O2 down 2L O2 nasal canula. educated patient to inform me if he feels Short of breath, or chest pain. Patient verbalized understanding
--- NOTE | 2022-04-22 17:56 | NUR ---
O2 PATIENT COMPLAINING THAT "IT IS HARDER" FOR HIM TO BREATH SINCE LOWERING O2. INCREASED TO 3L PATIENT REQUESTING ATIVAN FOR SLEEP WILL PAGE
--- NOTE | 2022-04-22 17:58 | NUR ---
PAGED DR JOSE MCBRIDE, PATIENT IS REQUESTING ATIVAN FOR SLEEP. SPOKE WITH CLAUDIA AT THE EXCHANGE
--- NOTE | 2022-04-22 18:15 | NUR ---
SPOKE WITH DR JOSE MCBRIDE REGARDING PATIENTS REQUEST FOR ATIVAN FOR SLEEP. DR DENIED ATIVAN, NEW ORDERS RECEIVED
[2022-04-22] MEDS ORDERED: TEMAZEPAM 7.5 MG CAPSULE PO PRN (18:30)
--- NOTE | 2022-04-22 19:28 | NUR ---
closing note Provided SBAR to nightRN. Patient in bed,respirations even, non labored, bed in low and locked position, call light within reach. Bed alarm on. Endorsed to RN that patient is on fluid restrictions and has 500ml left for the day. IV is saline locked.
--- NOTE | 2022-04-22 19:30 | NUR ---
no distress noted, patient requesting a room transfer due to current roommated, patient transferred to room 118, no distress noted, comfort maintianed, vss, see flow sheet, tele SR
--- NOTE | 2022-04-22 20:39 | NUR ---
Consultation Paged Reason for Consultation: CHF Was consult called: Y Person who was notified: text message Andrew Hilario Consulting Physician: Andrew Hilario Ordering Physician: Luiza Reynaga
[2022-04-22] MEDS: FUROSEMIDE 20 MG TABLET PO SCH (20:56)
[2022-04-22] MEDS: CARVEDILOL 6.25 MG TABLET (COREG) PO SCH (20:57)
[2022-04-22 20:59] VITALS: BP_SYST 120
[2022-04-22] MEDS ORDERED: FUROSEMIDE 20 MG/2 ML VIAL IVP SCH (21:00)
[2022-04-23] VITALS: BP_SYST 105; BP_SYST 123
--- NOTE | 2022-04-23 04:00 | NUR ---
restoril effective no distress noted, comfort maintained, patient sleeping
--- NOTE | 2022-04-23 05:00 | NUR ---
patient noncompliant and did not use urinal to measure I&0, sob with exertion noted, patient with no coughing at this time, up ad irene, BRP, urinals at bedside, patient voided x2
--- NOTE | 2022-04-23 07:30 | NUR ---
OPENING NOTE Received patient in bed resting. Patient A/O x4, Algerian speaking. Breathing even and unlabored on 3LPM of oxygen. No pain , no sob, no distress on initial assessment. Patient IV to RT AC patent on SL. Patient on Cardiac diet with fluid restrictions, able to feed himself. Patient on BRP put has urinal at bedside for needs. All needs met at this time, bed is locked in lowest position, call light within reach. Safety checks in place, will continue to monitor.
[2022-04-23 08:00] VITALS: BP_SYST 124
[2022-04-23] MEDS: FUROSEMIDE 20 MG TABLET PO SCH (08:30)
[2022-04-23] MEDS: CARVEDILOL 6.25 MG TABLET (COREG) PO SCH (08:31)
[2022-04-23] MEDS ORDERED: LEVO750T64 PO (12:43)
[2022-04-23 13:19] VITALS: BP_SYST 124
--- NOTE | 2022-04-23 14:05 | NUR ---
PATIENT READ AND SIGNED THE DC PAPER. DC PAPER EXPLAINED TO THE PATIENT. PATIENT LEFT WITH HIS BELONGINGS ASSISTED BY HIS SON. IV TAKEN OUT. PATIENT ABLE TO WALK. NO DISTRESS OR DISCOMFORT NOTED. PATIENT IN STABLE CONDITION.
== END 2022-04-23 14:00 | disposition home or self-care (01) | DRG 193 ==
LOC: SED 02:52 → STU 06:08
PROVIDERS: ADMIT Internal Medicine; ATTEND Internal Medicine
DX: J18.9 Pneumonia, unspecified organism (principal); I50.43 Acute on chronic combined systolic (congestive) and diastolic (congestive) heart failure; J96.01 Acute respiratory failure with hypoxia; I42.6 Alcoholic cardiomyopathy; I11.0 Hypertensive heart disease with heart failure; Z20.822 Contact with and (suspected) exposure to COVID-19; I50.9 Heart failure, unspecified; Z79.899 Other long term (current) drug therapy; Z86.711 Personal history of pulmonary embolism
CPT/HCPCS: 36415; 71045; 80053; 83880; 84484; 85025; 85379; 87081; 93005; 94760; 96365; 96375; 97110-GP; 97116-GP; 97530-GP; 99291; G0378; J0696; J1940; J1956; J2060

== ENCOUNTER 2022-05-08 18:53 | Emergency (ER) | payer BC ==
[~2022-05-08] VITALS: Ht 172.7 cm; Wt 88.5 kg
[~2022-05-08 18:53] MED LIST changes: +LEVO750T64 PO
[2022-05-08 19:05] VITALS: BP_SYST 127
--- NOTE | 2022-05-08 19:30 | NUR ---
LWBS 193
== END 2022-05-08 19:30 | disposition left against medical advice (07) ==
LOC: SED 18:53
DX: R06.02 Shortness of breath (principal); R19.7 Diarrhea, unspecified; R07.9 Chest pain, unspecified; Z53.21 Procedure and treatment not carried out due to patient leaving prior to being seen by health care provider
CPT/HCPCS: 93005

== ENCOUNTER 2022-05-09 10:35 | Inpatient (IN) | payer BC ==
[~2022-05-09] VITALS: Ht 172.7 cm; Wt 93.9 kg
--- NOTE | 2022-05-09 10:38 | NUR ---
BIB EMS FROM HOME WITH C/O SEVERE CHEST AND ABN PAIN - 01/06. PT STATES HE WAS HERE LAST NIGHT FOR SIMILAR SYMPTOMS. PT STATES HE HAS HAD THESE SYMPTOMS FOR THE PAST TWO WEEKS. PT HAS HAD PROBLEMS PASSING URINE. PT HAS ALSO HAD DIARRHEA FOR THE PAST 15 DAYS. HX - NM, HYPERLIP. PT IS AAX04, VS STABLE, NAD NOTED, BREATHING EVEN AND UNLABORED ON RA, PT DENIES N/V/D, PT ON MERCHANDISE STOCKER SHOW NSR. PENDING MD BUSCH AND ORDERS.
[2022-05-09 10:40] VITALS: BP_SYST 132
--- NOTE | 2022-05-09 10:40 | NUR ---
AT BEDSIDE EXAMINING THE PT.
[2022-05-09] MEDS ORDERED: NITROGLYCERIN 1 INCH (GM) OINT. TP ONE (10:47)
[2022-05-09] MEDS ORDERED: MORPHINE 4 MG INJ. 4 MG/ML VIAL IVP ONE (10:47)
[2022-05-09] MEDS ORDERED: ASPIRIN 325 MG TABLET PO ONE (11:00)
[2022-05-09 11:11] LABS: BASOPHILS % (AUTO) 0.5 % (0.0-2.0); EOSINOPHILS # (AUTO) 0.1 K/uL (0.0-0.4); HEMATOCRIT 41.5 % (36-54); HEMOGLOBIN 14.1 g/dL (14.0-18.0); LYMPHOCYTES # (AUTO) 0.6 K/uL (1.0-5.5); LYMPHOCYTES % (AUTO) 7.6 % (20.5-51.5); MEAN CORPUSCULAR HEMOGLOBIN 32 pg (27-31); MEAN CORPUSCULAR HGB CONC 34 % (32-36); MEAN CORPUSCULAR VOLUME 94 fL (79.0-98.0); MONOCYTES # (AUTO) 0.7 K/uL (0.0-1.0); MONOCYTES % (AUTO) 8.9 % (1.7-9.3); NEUTROPHILS # (AUTO) 6.3 K/uL (1.8-7.7); PLATELET COUNT (AUTO) 235 K/uL (130-430); RED BLOOD CELL COUNT(AUTO) 4.42 MIL/uL (4.2-6.2); RED CELL DISTRIBUTION WIDTH 14.6 % (9.0-15.0); WHITE BLOOD COUNT (AUTO) 7.6 K/uL (4.8-10.8)
[2022-05-09 11:27] LABS: ANION GAP 9 (5-15); CHLORIDE 106 mmol/L (98-107); CREATININE 1.08 mg/dL (0.55-1.30); GLUCOSE 130 mg/dL (70-99); UREA NITROGEN, BLOOD 14 mg/dL (8-21)
[2022-05-09 11:29] LABS: GFR AFRICAN AMERICAN 90 mL/min (>90)
[2022-05-09 11:41] LABS: ALANINE AMINOTRANSFERASE 49 U/L (12-78); ALBUMIN 3.5 g/dL (3.4-4.8); ASPARTATE AMINOTRANSFERASE 51 U/L (10-37); TOTAL BILIRUBIN 1.2 mg/dL (0.0-1.0)
--- NOTE | 2022-05-09 12:12 | NUR ---
Note undone in EDM - 05/09/22 at 1218 by [id number] BIB EMS FROM HOME WITH C/O SEVERE CHEST AND ABN PAIN - 01/06. PT STATES HE WAS HERE LAST NIGHT FOR SIMILAR SYMPTOMS. PT STATES HE HAS HAD THESE SYMPTOMS FOR THE PAST TWO WEEKS. PT HAS HAD PROBLEMS PASSING URINE. PT HAS ALSO HAD DIARRHEA FOR THE PAST 15 DAYS. HX - RI, HYPERLIP. PT IS AAX04, VS STABLE, NAD NOTED, BREATHING EVEN AND UNLABORED ON RA, PT DENIES N/V/D, PT ON OPEN CLAIMS REPRESENTATIVE SHOW NSR. PENDING MD BUSCH AND ORDERS.
[2022-05-09] MEDS ORDERED: metroNIDAZOLE 500 mg/NS 100 ML IV ONE (12:30)
--- NOTE | 2022-05-09 15:58 | NUR ---
covid swab collected at bedside
--- NOTE | 2022-05-09 17:05 | NUR ---
ADMISSION PATIENT TRANSFERRED FROM ER VIA GURNEY. PATIENT HAS COMPLAINTS OF PAIN AT THIS TIME. TUBE CLOSING MACHINE OPERATOR IS AT BEDSIDE. PATIENT EDUCATED SUPERVISOR FILTRATION LIGHT FOR ASSISTANCE. CALL LIGHT IS WITH HIM PATIENT HAS SPOUSE AT BEDSIDE.
[2022-05-09 17:13] VITALS: BP_SYST 127
--- NOTE | 2022-05-09 17:15 | NUR ---
REPORT GIVEN TO TONY THOMAS FOR CONTIUNITY OF CARE. ALL QUESTIONS AND CONCERNS ADDRESSED. ALL CARE ENDORSED.
[2022-05-09] MEDS: MORPHINE 4 MG INJ. 4 MG/ML VIAL IVP PRN ×2 (17:36→21:46)
--- NOTE | 2022-05-09 19:01 | NUR ---
RN CLOSING NOTE PATIENT IS SITTING UP IN BED EATING DINNER. NO COMPLAINTS AT THIS TIME. CALL LIGHT IS WITH HIM EDUCATED TO USE FOR ASSISTANCE. PATIENT HAS FAMILY AT BED SIDE. PATIENT HAS NO OTHER NEEDS AT THIS TIME.
[2022-05-09 19:20] VITALS: BP_SYST 127
--- NOTE | 2022-05-09 19:20 | NUR ---
PM ASSESSMENT; - Patient is awake, alert, oriented X 4. Patient oriented to hospital room, call light, toileting, pain management and safety-teach back done. VSS. IV site patent flushed well w/ NS, no s/s any infiltration noted. Side rails x2,Call light within reach. Cont to monitor pt.
[2022-05-09] MEDS ORDERED: ROSUVASTATIN CALCIUM 5 MG/TAB (CRESTOR) PO SCH (20:00)
[2022-05-09] MEDS: FUROSEMIDE 20 MG TABLET PO SCH ×2 (20:59→21:05)
[2022-05-09] MEDS: SACUBITRIL/VALSARTAN 24 MG-26 MG 1 TABLET PO SCH (21:00)
[2022-05-09] MEDS: CARVEDILOL 6.25 MG TABLET (COREG) PO SCH (21:00)
[2022-05-09 23:00] VITALS: BP_SYST 125
[2022-05-10] MEDS ORDERED: TEMAZEPAM 7.5 MG CAPSULE PO PRN (01:00)
--- NOTE | 2022-05-10 01:12 | NUR ---
ROUNDS; -Pt is c/o that he can't sleep. Gave Restoril 15mg po for sleep. Call light w/in reach. Cont to monitor pt.
--- NOTE | 2022-05-10 06:25 | NUR ---
CLOSING NOTES; -Pt is resting in bed comfortably. No s/s any acute distress noted. Pt's condition stable. Side rails x2,Call light within reach. will endorse to day shift nurse to cont care.
[2022-05-10] MEDS: MORPHINE 4 MG INJ. 4 MG/ML VIAL IVP PRN ×4 (06:56→21:06)
[2022-05-10 07:55] LABS: ALBUMIN 3.4 g/dL (3.4-4.8); CALCIUM 9.2 mg/dL (8.4-11.0); CREATININE 0.95 mg/dL (0.55-1.30); TOTAL BILIRUBIN 1.2 mg/dL (0.0-1.0)
[2022-05-10 08:01] LABS: BASOPHILS % (AUTO) 0.8 % (0.0-2.0); EOSINOPHILS # (AUTO) 0.2 K/uL (0.0-0.4); EOSINOPHILS % (AUTO) 3.2 % (0.0-4.0); HEMATOCRIT 40.2 % (36-54); HEMOGLOBIN 13.3 g/dL (14.0-18.0); LYMPHOCYTES # (AUTO) 0.9 K/uL (1.0-5.5); LYMPHOCYTES % (AUTO) 16.4 % (20.5-51.5); MEAN CORPUSCULAR HEMOGLOBIN 32 pg (27-31); MEAN CORPUSCULAR HGB CONC 33 % (32-36); MEAN CORPUSCULAR VOLUME 95 fL (79.0-98.0); MONOCYTES # (AUTO) 0.6 K/uL (0.0-1.0); NEUTROPHILS # (AUTO) 3.9 K/uL (1.8-7.7); NEUTROPHILS % (AUTO) 69.6 % (40.0-70.0); PLATELET COUNT (AUTO) 210 K/uL (130-430); RED BLOOD CELL COUNT(AUTO) 4.22 MIL/uL (4.2-6.2); RED CELL DISTRIBUTION WIDTH 14.3 % (9.0-15.0); WHITE BLOOD COUNT (AUTO) 5.7 K/uL (4.8-10.8)
--- NOTE | 2022-05-10 08:10 | NUR ---
Initial Received patient awake in bed, A/Ox4. Respiration even and unlabored, no c/o of pain/SOB/chest discomfort. IV to left forearm patent. All safety precaution secured, bed in low position and call light w/in reached.
[2022-05-10 08:42] VITALS: BP_SYST 138
[2022-05-10 08:50] VITALS: BP_SYST 120
[2022-05-10] MEDS: ATORVASTATIN 20 MG TABLET PO SCH (08:56)
[2022-05-10] MEDS: FUROSEMIDE 20 MG TABLET PO SCH ×2 (08:57→21:04)
[2022-05-10] MEDS: CARVEDILOL 6.25 MG TABLET (COREG) PO SCH ×2 (08:57→21:04)
[2022-05-10] MEDS: SACUBITRIL/VALSARTAN 24 MG-26 MG 1 TABLET PO SCH ×2 (08:58→21:05)
[2022-05-10 12:30] VITALS: BP_SYST 124
[2022-05-10 16:25] VITALS: BP_SYST 121
--- NOTE | 2022-05-10 18:55 | NUR ---
Patient stable, resting in bed no c/o pain/SOB/ chest discomfort, no signs of distress. IV saline lock patent, maintain safety precaution throughout my shift, will endorse.
--- NOTE | 2022-05-10 19:30 | NUR ---
PM ASSESSMENT; - Patient is awake, alert, oriented X 4. Patient oriented to hospital room, call light, toileting, pain management and safety-teach back done. IV site patent flushed well w/ NS, no s/s any infiltration noted. Side rails x2,Call light within reach. Cont to monitor pt.
[2022-05-10 19:40] VITALS: BP_SYST 124
[2022-05-10] MEDS ORDERED: ZOLPIDEM TARTRATE 5 MG TABLET PO PRN (22:00)
[2022-05-10 23:40] VITALS: BP_SYST 118; BP_SYST 123
--- NOTE | 2022-05-10 23:40 | NUR ---
NOTES; -Pt awakes, requests milk but told pt that we don't have in fridge. VSS. Pt use 2L nc oxy when during sleep. Call light w/in reach. Cont to monitor pt.
--- NOTE | 2022-05-11 04:14 | NUR ---
ROUNDS; -Pt removed a telemetry box multiple times. He stated," I had a bad dream that I don't remember it." Placed telemetry electrodes on pt and cont to monitor pt. Addendum: 05/11/22 at 0421 by [employer] MARTHA Kapadia RN Additional notes; Will endorse in am shift for md to discontinue Gaby heart pt stated that it must be the side effect of Ambien.
[2022-05-11 07:36] VITALS: BP_SYST 109
[2022-05-11 08:16] LABS: BASOPHILS # (AUTO) 0.1 K/uL (0.0-0.2); EOSINOPHILS # (AUTO) 0.2 K/uL (0.0-0.4); HEMATOCRIT 40.9 % (36-54); HEMOGLOBIN 13.8 g/dL (14.0-18.0); LYMPHOCYTES # (AUTO) 0.8 K/uL (1.0-5.5); LYMPHOCYTES % (AUTO) 16.1 % (20.5-51.5); MEAN CORPUSCULAR HEMOGLOBIN 32 pg (27-31); MEAN CORPUSCULAR HGB CONC 34 % (32-36); MEAN CORPUSCULAR VOLUME 95 fL (79.0-98.0); MONOCYTES # (AUTO) 0.6 K/uL (0.0-1.0); MONOCYTES % (AUTO) 11.8 % (1.7-9.3); NEUTROPHILS # (AUTO) 3.4 K/uL (1.8-7.7); NEUTROPHILS % (AUTO) 67.1 % (40.0-70.0); PLATELET COUNT (AUTO) 219 K/uL (130-430); RED BLOOD CELL COUNT(AUTO) 4.32 MIL/uL (4.2-6.2); RED CELL DISTRIBUTION WIDTH 14.9 % (9.0-15.0)
[2022-05-11] MEDS: ATORVASTATIN 20 MG TABLET PO SCH (08:42)
[2022-05-11] MEDS: SACUBITRIL/VALSARTAN 24 MG-26 MG 1 TABLET PO SCH (08:43)
[2022-05-11] MEDS: FUROSEMIDE 20 MG TABLET PO SCH (08:44)
[2022-05-11] MEDS: CARVEDILOL 6.25 MG TABLET (COREG) PO SCH (08:46)
[2022-05-11] MEDS: MORPHINE 4 MG INJ. 4 MG/ML VIAL IVP PRN ×2 (08:56→15:04)
[2022-05-11 09:07] LABS: CALCIUM 9.3 mg/dL (8.4-11.0); CREATININE 0.85 mg/dL (0.55-1.30); TOTAL BILIRUBIN 0.8 mg/dL (0.0-1.0)
[2022-05-11 09:08] LABS: ALBUMIN 3.4 g/dL (3.4-4.8)
--- NOTE | 2022-05-11 10:55 | NUR ---
Dietitian Recommendations * Continue Na2 diet * Send double portions; RD entered in [employer] * Prune juice 1x/day; RD entered in [employer] GS, MPH, RD Please refer to RD Assessment for further details. Thanks! Addendum: 05/11/22 at [address] Amended: Links added.
[2022-05-11 12:24] VITALS: BP_SYST 105
--- NOTE | 2022-05-11 15:50 | NUR ---
Patient left against medical advice states " I cannot wait for Doctor, I want to go home to watch the football game. IV saline lock removed, patient signed form and exist the building.
== END 2022-05-11 15:45 | disposition left against medical advice (07) | DRG 313 ==
LOC: SED 10:35 → STU 13:18
PROVIDERS: ADMIT Specialist; ATTEND Specialist
DX: R07.9 Chest pain, unspecified (principal); I13.0 Hypertensive heart and chronic kidney disease with heart failure and stage 1 through stage 4 chronic kidney disease, or unspecified chronic kidney disease; I42.9 Cardiomyopathy, unspecified; E78.5 Hyperlipidemia, unspecified; K76.0 Fatty (change of) liver, not elsewhere classified; I25.10 Atherosclerotic heart disease of native coronary artery without angina pectoris; K57.90 Diverticulosis of intestine, part unspecified, without perforation or abscess without bleeding; F10.10 Alcohol abuse, uncomplicated; Y90.9 Presence of alcohol in blood, level not specified; I50.9 Heart failure, unspecified; N18.9 Chronic kidney disease, unspecified; Z20.822 Contact with and (suspected) exposure to COVID-19; Z79.899 Other long term (current) drug therapy; I25.2 Old myocardial infarction; Z53.29 Procedure and treatment not carried out because of patient's decision for other reasons
CPT/HCPCS: 36415; 71045; 76376; 80053; 83605; 83735; 83880; 84484; 85025; 87040; 87081; 93005; 96374; 99285; G0378; J2270; J3490

== ENCOUNTER 2022-05-19 18:22 | Inpatient (IN) | payer BC ==
[~2022-05-19] VITALS: Ht 172.7 cm; Wt 93.9 kg
[2022-05-19 18:25] VITALS: BP_SYST 132
--- NOTE | 2022-05-19 19:22 | NUR ---
Patient to ER bed 02 to gown for evaluation. Side rails up.
[2022-05-19] MEDS ORDERED: MORPHINE 4 MG INJ. 4 MG/ML VIAL IM ONE (19:30)
--- NOTE | 2022-05-19 19:30 | NUR ---
MD Carey at bedside examining pt.
--- NOTE | 2022-05-19 20:04 | NUR ---
Pt medicated as ordered; tolerated well.
[2022-05-19 20:06] LABS: BASOPHILS # (AUTO) 0.1 K/uL (0.0-0.2); BASOPHILS % (AUTO) 1.4 % (0.0-2.0); EOSINOPHILS % (AUTO) 0.6 % (0.0-4.0); HEMATOCRIT 38.7 % (36-54); LYMPHOCYTES # (AUTO) 1.3 K/uL (1.0-5.5); LYMPHOCYTES % (AUTO) 17.8 % (20.5-51.5); MEAN CORPUSCULAR HEMOGLOBIN 32 pg (27-31); MEAN CORPUSCULAR HGB CONC 34 % (32-36); MEAN CORPUSCULAR VOLUME 94 fL (79.0-98.0); MONOCYTES # (AUTO) 0.7 K/uL (0.0-1.0); MONOCYTES % (AUTO) 9.5 % (1.7-9.3); NEUTROPHILS # (AUTO) 5.1 K/uL (1.8-7.7); NEUTROPHILS % (AUTO) 70.7 % (40.0-70.0); PLATELET COUNT (AUTO) 279 K/uL (130-430); RED BLOOD CELL COUNT(AUTO) 4.14 MIL/uL (4.2-6.2); RED CELL DISTRIBUTION WIDTH 14.3 % (9.0-15.0); WHITE BLOOD COUNT (AUTO) 7.2 K/uL (4.8-10.8)
[2022-05-19 20:14] LABS: ANION GAP 9 (5-15); CALCIUM 8.3 mg/dL (8.4-11.0); CHLORIDE 107 mmol/L (98-107); CREATININE 1.06 mg/dL (0.55-1.30); GLUCOSE 97 mg/dL (70-99); UREA NITROGEN, BLOOD 12 mg/dL (8-21)
[2022-05-19 20:17] LABS: GFR AFRICAN AMERICAN 92 mL/min (>90); PROTHROMBIN TIME 10.1 SECS (9.5-12.5)
[2022-05-19 20:20] LABS: ALANINE AMINOTRANSFERASE 62 U/L (12-78); ALBUMIN 3.6 g/dL (3.4-4.8); AMYLASE 33 U/L (0-100); ASPARTATE AMINOTRANSFERASE 53 U/L (10-37); LACTATE DEHYDROGENASE 219 U/L (85-227); LIPASE 243 U/L (73-393); TOTAL BILIRUBIN 0.5 mg/dL (0.0-1.0)
[2022-05-19 20:24] LABS: C-REACTIVE PROTEIN QUANT < 0.2 mg/dL (0-0.5)
[2022-05-19 20:45] LABS: CKMB RELATIVE INDEX 1.5 (0.0-2.9); CREATINE KINASE MB 6.8 ng/mL (0-3.6)
[2022-05-19 21:08] LABS: ACETONE, SERUM NEGATIVE (NEGATIVE)
[2022-05-19] MEDS ORDERED: ASPIRIN 81 MG TABLET(ECOTRIN) PO ONE (21:15)
--- NOTE | 2022-05-19 22:01 | NUR ---
Admit bed requested Patient will be admitted to care of Dr. Millan Admitted to Telemetry Observation unit. Diagnosis Elevated troponin, CHF, Abdominal Pain Inpatient (Yes or No) no Observation (Yes or No) yes Orientation concerns or request close to nursing station (Yes or No) no Covid Status pending On vent or bipap no Isolation requirements no Needs a sitter no From Home (Yes or if No enter name of facility) yes Requires Dialysis (Yes or No) no Med Rec Completed (Yes of No) yes
[2022-05-19] MEDS ORDERED: ONDANSETRON HCL 4 MG/2 ML VIAL IVP ONE (23:45)
[2022-05-19] MEDS ORDERED: MORPHINE 4 MG INJ. 4 MG/ML VIAL IVP ONE (23:45)
--- NOTE | 2022-05-20 00:03 | NUR ---
MRSA SAMPLE COLLECTED AND SENT TO LAB
--- NOTE | 2022-05-20 00:06 | NUR ---
# 20 gauge angiocath placed to R AC. Use of asceptic technique. Opsite placed over site. Blood return noted. Flushed with 10 cc of normal saline. No evidence of infiltration noted. Patient tolerated well.
--- NOTE | 2022-05-20 00:40 | NUR ---
Admission Note Received patient from ER with diagnosis of elevated troponin, chf, abdominal pain. Initial Plan of Care discussed-patient verbalized understanding. Oriented to room, call light, pain management and safety.
[2022-05-20 00:49] VITALS: BP_SYST 132
--- NOTE | 2022-05-20 02:53 | NUR ---
Patient reports feeling anxious, notified dr. camacho orders ativan 0.5mg q12hr PRn for anxiety order repeated back and confirmed
[2022-05-20] MEDS ORDERED: LORazepam 2 MG/ML VIAL ONE (03:04)
[2022-05-20] MEDS: LORazepam 2 MG/ML VIAL IVP PRN (03:04)
--- NOTE | 2022-05-20 06:00 | NUR ---
CONSULTATION PAGED/CALLED Reason for Consultation: ELEVATED TROP Person Who was Notified: MARKIE Consulting Physician:MERVIN Ultra Sound Technician Specialty: Ordering Physician: REED
[2022-05-20] MEDS ORDERED: ESCITALOPRAM OXALATE 10 MG TABLET PO PRN (07:15)
--- NOTE | 2022-05-20 07:26 | NUR ---
CLOSING NOTES Patient resting in bed - no s/s pain or distress noted. Respirations even and unlabored - head of bed elevated. IV site patent - no s/s redness, infection, or infiltration. bed locked and in lowest position. Call light within reach.
[2022-05-20] MEDS ORDERED: CITALOPRAM HYDROBROMIDE 20 MG TABLET PO PRN (07:30)
[2022-05-20 08:00] VITALS: BP_SYST 117
[2022-05-20] MEDS ORDERED: NON-FORMULARY MEDICATION (Sacubitril/Valsartan (Entresto 49 mg-51 mg Tablet) 1 EACH) PO SCH (09:00)
[2022-05-20] MEDS ORDERED: FUROSEMIDE 40 MG/4 ML VIAL IVP SCH (09:00)
[2022-05-20] MEDS: CARVEDILOL 6.25 MG TABLET (COREG) PO SCH ×2 (11:03→20:52)
[2022-05-20] MEDS: APIXABAN 2.5 MG TABLET PO SCH ×2 (11:04→20:47)
[2022-05-20] MEDS ORDERED: MORPHINE 2 MG/ML INJ. SYRINGE IVP PRN (14:00)
[2022-05-20] MEDS ORDERED: NALOXONE HCL 0.4 MG/ML AMP (NARCAN) IVP PRN (14:00)
[2022-05-20 16:00] VITALS: BP_SYST 117
--- NOTE | 2022-05-20 17:58 | NUR ---
CONSULTATION PAGED/CALLED Reason for Consultation: gi Person Who was Notified: emilio Consulting Physician: aaliyah sosa Ordering Physician: gonzalo camacho
--- NOTE | 2022-05-20 18:45 | NUR ---
Mr Zheng has been assessed as indicated. He has been successfully treated for pain x2 this shift. He c/o abdominal pain after dinner. He ambulates with out assistance around the nursing unit as well as in his room. He can make his needs known and is resting quietly at this time
[2022-05-20] MEDS: 0.45% NACL 1,000 ML IV SCH (19:02)
[2022-05-20] MEDS: MORPHINE 2 MG/ML INJ. SYRINGE IVP PRN (19:02)
--- NOTE | 2022-05-20 19:30 | NUR ---
Handoff has been given to Sandy
--- NOTE | 2022-05-20 19:30 | NUR ---
CHANGE OF SHIFT; endorsed by day shift. no acue distress. came in for abdominal pain/CHf/ elevated troponin. call light within reach.
[2022-05-20 20:00] VITALS: BP_SYST 135; BP_SYST 138
--- NOTE | 2022-05-20 20:30 | NUR ---
NOTES: pt. ambulated to the restroom. On 3 liters O2 /nc. IV infusing via rt. arm. on bus driver/monitor and shows sinus tach. call light jovani joseph.
[2022-05-20] MEDS: SACUBITRIL/VALSARTAN 24 MG-26 MG 1 TABLET PO SCH (20:52)
--- NOTE | 2022-05-20 21:00 | NUR ---
NOTES: due medications given.
--- NOTE | 2022-05-20 22:00 | NUR ---
NOTES: report given to nurse Brody.in stable condition.
[2022-05-21 00:08] VITALS: BP_SYST 117
[2022-05-21] MEDS: MORPHINE 2 MG/ML INJ. SYRINGE IVP PRN ×5 (00:51→22:50)
[2022-05-21 01:03] LABS: ALBUMIN 3.2 g/dL (3.4-4.8); CALCIUM 8.5 mg/dL (8.4-11.0); CREATININE 1.15 mg/dL (0.55-1.30)
[2022-05-21 06:58] LABS: BASOPHILS # (AUTO) 0.1 K/uL (0.0-0.2); BASOPHILS % (AUTO) 0.9 % (0.0-2.0); EOSINOPHILS # (AUTO) 0.1 K/uL (0.0-0.4); EOSINOPHILS % (AUTO) 1.8 % (0.0-4.0); HEMATOCRIT 35.9 % (36-54); HEMOGLOBIN 12.1 g/dL (14.0-18.0); LYMPHOCYTES # (AUTO) 0.9 K/uL (1.0-5.5); LYMPHOCYTES % (AUTO) 14.2 % (20.5-51.5); MEAN CORPUSCULAR HEMOGLOBIN 32 pg (27-31); MEAN CORPUSCULAR HGB CONC 34 % (32-36); MEAN CORPUSCULAR VOLUME 95 fL (79.0-98.0); MONOCYTES # (AUTO) 0.7 K/uL (0.0-1.0); MONOCYTES % (AUTO) 11.3 % (1.7-9.3); NEUTROPHILS # (AUTO) 4.3 K/uL (1.8-7.7); NEUTROPHILS % (AUTO) 71.8 % (40.0-70.0); PLATELET COUNT (AUTO) 230 K/uL (130-430); RED BLOOD CELL COUNT(AUTO) 3.79 MIL/uL (4.2-6.2); RED CELL DISTRIBUTION WIDTH 14.3 % (9.0-15.0)
[2022-05-21 08:00] VITALS: BP_SYST 101
[2022-05-21] MEDS: APIXABAN 2.5 MG TABLET PO SCH ×2 (08:28→21:10)
[2022-05-21] MEDS: CARVEDILOL 6.25 MG TABLET (COREG) PO SCH ×2 (08:29→21:07)
[2022-05-21] MEDS: SACUBITRIL/VALSARTAN 24 MG-26 MG 1 TABLET PO SCH ×2 (08:30→21:16)
[2022-05-21] MEDS: FUROSEMIDE 40 MG TABLET PO SCH (08:31)
--- NOTE | 2022-05-21 09:30 | NUR ---
TELEPHONE CALL FROM LAB REPORTING MRSA NARES POSITIVE. CHARGE NURSE MADE AWARE, WILL NOTIFY
--- NOTE | 2022-05-21 10:50 | NUR ---
o2 decreased from 4lpm via nc to 2 lpm, sao2 95%, sob observed upon exertion
[2022-05-21] MEDS ORDERED: DIATR MEGLU/DIATRIZ SOD 30 ML SOLUTION PO ONE (11:05)
[2022-05-21 11:20] VITALS: BP_SYST 106
--- NOTE | 2022-05-21 11:36 | NUR ---
patient c/o 8/10 abdominal pain and sob, no dyspnea observed, SaO2 @ 96% on 2lpm o2 via nc, administered prn iv morphine per emar
--- NOTE | 2022-05-21 13:24 | NUR ---
PATIENT TRANSPORTED TO HAVE CT DONE
[2022-05-21] MEDS: 0.45% NACL 1,000 ML IV SCH ×2 (13:30→20:59)
--- NOTE | 2022-05-21 15:00 | NUR ---
patient currently on RA, no respiratory distress noted, sao2 96%
[2022-05-21 15:33] VITALS: BP_SYST 115
--- NOTE | 2022-05-21 18:28 | NUR ---
Patient reports no bm x 3 days, abdomen distended and firm, awaiting for orders from Dr. Desai
[2022-05-21 20:00] VITALS: BP_SYST 149
--- NOTE | 2022-05-21 20:00 | NUR ---
Received Patient in room, he his able to ambulate in room without assist, no signs of distress or discomfort noted, Patient present with attention seeking behavior and is very manipulative, Patient removed Tele monitor upon nurses arrival to the room to check on Patient's safety he state he needed his anxiety medication, Patient was educated on the importance of keeping his Tele monitor on, he verbalized understanding.
[2022-05-21] MEDS: LORazepam 2 MG/ML VIAL IVP PRN (21:09)
--- NOTE | 2022-05-21 23:31 | NUR ---
Patient continues to remove tele monitor, he was educated on the importance of wearing his monitor,Patient is alert and oriented x 4, he verbalizes understanding, will continue to monitor.
[2022-05-22 06:47] LABS: BASOPHILS # (AUTO) 0.1 K/uL (0.0-0.2); BASOPHILS % (AUTO) 1.1 % (0.0-2.0); EOSINOPHILS # (AUTO) 0.2 K/uL (0.0-0.4); EOSINOPHILS % (AUTO) 2.3 % (0.0-4.0); HEMATOCRIT 35.5 % (36-54); HEMOGLOBIN 12.1 g/dL (14.0-18.0); LYMPHOCYTES # (AUTO) 0.8 K/uL (1.0-5.5); LYMPHOCYTES % (AUTO) 11.5 % (20.5-51.5); MEAN CORPUSCULAR HEMOGLOBIN 32 pg (27-31); MEAN CORPUSCULAR HGB CONC 34 % (32-36); MEAN CORPUSCULAR VOLUME 94 fL (79.0-98.0); MONOCYTES # (AUTO) 0.6 K/uL (0.0-1.0); MONOCYTES % (AUTO) 8.1 % (1.7-9.3); NEUTROPHILS # (AUTO) 5.3 K/uL (1.8-7.7); PLATELET COUNT (AUTO) 249 K/uL (130-430); RED BLOOD CELL COUNT(AUTO) 3.75 MIL/uL (4.2-6.2); RED CELL DISTRIBUTION WIDTH 14.2 % (9.0-15.0); WHITE BLOOD COUNT (AUTO) 6.8 K/uL (4.8-10.8)
[2022-05-22 07:30] LABS: ALBUMIN 3.1 g/dL (3.4-4.8); CALCIUM 8.9 mg/dL (8.4-11.0); CREATININE 0.9 mg/dL (0.55-1.30); TOTAL BILIRUBIN 0.9 mg/dL (0.0-1.0)
[2022-05-22 08:00] VITALS: BP_SYST 128
[2022-05-22] MEDS: APIXABAN 2.5 MG TABLET PO SCH ×2 (08:03→21:06)
[2022-05-22] MEDS: CARVEDILOL 6.25 MG TABLET (COREG) PO SCH ×2 (08:12→21:00)
[2022-05-22] MEDS: SACUBITRIL/VALSARTAN 24 MG-26 MG 1 TABLET PO SCH ×2 (08:13→21:00)
[2022-05-22] MEDS: FUROSEMIDE 40 MG TABLET PO SCH (08:13)
[2022-05-22] MEDS: MORPHINE 2 MG/ML INJ. SYRINGE IVP PRN ×3 (09:29→23:01)
--- NOTE | 2022-05-22 09:41 | NUR ---
NEW PIV INITIATED TO LEFT HAND 22G BY USING ASEPTIC TECHNIQUE. FLUSHED WITH 10CC NS, GOOD BLOOD RETURN NOTED. PT TOLERATED WELL. COVERED WITH TRANSPARENT DRESSING.
--- NOTE | 2022-05-22 10:01 | NUR ---
CONSULTATION PAGED REASON FOR CONSULTATION: PROSTATE ISSUES WAS CONSULT CALLED? Y PERSON WHO WAS NOTIFIED: ALDAIR CONSULTING PHYSICIAN: KISHA FARRELL NANNY/HOUSEHOLD MANAGER SPECIALTY: UROLOGY NANNY/HOUSEHOLD MANAGER PHONE NUMBER: [phone] REQUESTING PHYSICIAN: ROSA DALLAS
--- NOTE | 2022-05-22 10:27 | NUR ---
NOTES; URO CALLED, IF BLADDER SCAN SHOWS MORE THAN 300ML, INSERT F/C. BLADDER SCAN SHOWS 47ML. NO DISTENSION/NO PAIN TO LOWER ABD. NO FC INSERTION AT THIS TIME.WILL CONT TO MONITOR.
[2022-05-22] MEDS ORDERED: PANTOPRAZOLE SODIUM 40 MG TAB PO ONE (11:00)
[2022-05-22 11:22] VITALS: BP_SYST 108
[2022-05-22] MEDS: SUCRALFATE 1 GM/10 ML UDC GT SCH ×3 (11:30→21:03)
[2022-05-22] MEDS: metroNIDAZOLE 500 mg/NS 100 ML IV SCH ×2 (14:10→21:09)
[2022-05-22 15:30] VITALS: BP_SYST 110
--- NOTE | 2022-05-22 18:16 | NUR ---
NEW PIV INITIATED TO RIGHT HAND 22G BY USING ASEPTIC TECHNIQUE. FLUSHED WITH 10CC NS, GOOD BLOOD RETURN NOTED. PT TOLERATED WELL. COVERED WITH TRANSPARENT DRESSING.
--- NOTE | 2022-05-22 19:00 | NUR ---
RECEIVED PT IN BED.AOX2.ON RA.NOT IN RESPIRATORY DISTRESS NOTED.BED IN LOWEST POSITION.BEDSIDE TABLE AND CALL LIGHT ARE WITHIN REACH.ALL NEEDS ARE MET AT THIS TIME.
--- NOTE | 2022-05-22 19:21 | NUR ---
CLOSING NOTE; PT RESTING IN BED, BREATHING NON-LABORED AND REGULAR. NO S/S ACUTE DISTRESS OR SOB. IVF RUNNING ORDERED. IV SITE REMAIN INTACT AND CLEAN. NO IV INFILTRATION OR INFECTION NOTED. BED IS LOCKED AND AT LOW POSITION. CALL LIGHT WITHIN REACH. ENDORSED CARE TO PAINT TECHNICIAN NURSE.
[2022-05-22 20:00] VITALS: BP_SYST 124
[2022-05-22] MEDS ORDERED: MUPIROCIN 1 GM OIN.PF.APP NS SCH (21:00)
[2022-05-22] MEDS: LORazepam 2 MG/ML VIAL IVP PRN (21:04)
[2022-05-22] MEDS: MUPIROCIN 2% TOPICAL OINTMENT 22 GM NS SCH (21:05)
--- NOTE | 2022-05-22 22:30 | NUR ---
FOUND PT WANDERING ON THE HALLWAY.PT IV LINE WAS INTACT BUT THE IV TUBING CONNECTED TO INFUSION PUMP WAS PULLED OUT.WHEN PT WAS ASKED THE REASON HE PULLED OUT AND HE SAID HE JUST DON'T WANT IT.ASSESSED PT MENTATION.PT IS AOX2, CONFUSED.REORIENTED TO PLACE AND EVENT.
--- NOTE | 2022-05-22 23:30 | NUR ---
PT IS SO AGITATED AND WAS TRYING TO GET OUT OF THE BED WITHOUT LETTING THE RN KNOW.EDUCATED PT TO INFORM RN FOR ASSISTANCE BECAUSE HE IS CONNECTED TO THE IV.PT IS UNCOOPERATIVE. Addendum: 05/23/22 at 0107 by [facility] MARTHA aKpadia RN EDUCATED PT TO INFORM RN FOR ASSISTANCE BECAUSE HE IS CONNECTED TO THE IV PUMP.
--- NOTE | 2022-05-23 00:43 | NUR ---
PT PULLED OUT HIS IV.PT REFUSED TO BE INSERTED A NEW IV LINE.YAHIR LANGSTON RN.
[2022-05-23 01:11] VITALS: BP_SYST 113
--- NOTE | 2022-05-23 02:00 | NUR ---
PT IS AWAKE WALKING IN HIS BED AND TALKING TO HIMSELF.REORIENTED TO PLACE AND EVENT.
--- NOTE | 2022-05-23 03:00 | NUR ---
OFFERED IV INSERTION BUT PT STILL REFUSED.
[2022-05-23] MEDS: 0.45% NACL 1,000 ML IV SCH (05:28)
[2022-05-23] MEDS: metroNIDAZOLE 500 mg/NS 100 ML IV SCH ×3 (05:29→21:14)
[2022-05-23] MEDS: SUCRALFATE 1 GM/10 ML UDC GT SCH ×4 (06:05→21:16)
--- NOTE | 2022-05-23 06:20 | NUR ---
PT REFUSED TO BE CLEAN, CHANGE GOWN AND LINEN.
[2022-05-23] MEDS: MORPHINE 2 MG/ML INJ. SYRINGE IVP PRN ×3 (07:03→18:54)
--- NOTE | 2022-05-23 07:04 | NUR ---
REINSERTED AN IV ON L HAND G20, PATENT AND INTACT; WITH GOOD BLOOD RETURN.
[2022-05-23 07:05] LABS: BASOPHILS # (AUTO) 0.1 K/uL (0.0-0.2); EOSINOPHILS # (AUTO) 0.2 K/uL (0.0-0.4); EOSINOPHILS % (AUTO) 2.3 % (0.0-4.0); HEMATOCRIT 35.9 % (36-54); HEMOGLOBIN 12.2 g/dL (14.0-18.0); LYMPHOCYTES # (AUTO) 0.9 K/uL (1.0-5.5); LYMPHOCYTES % (AUTO) 14.1 % (20.5-51.5); MEAN CORPUSCULAR HEMOGLOBIN 32 pg (27-31); MEAN CORPUSCULAR HGB CONC 34 % (32-36); MEAN CORPUSCULAR VOLUME 95 fL (79.0-98.0); MONOCYTES # (AUTO) 0.6 K/uL (0.0-1.0); NEUTROPHILS # (AUTO) 4.8 K/uL (1.8-7.7); NEUTROPHILS % (AUTO) 73.6 % (40.0-70.0); PLATELET COUNT (AUTO) 284 K/uL (130-430); RED BLOOD CELL COUNT(AUTO) 3.79 MIL/uL (4.2-6.2); RED CELL DISTRIBUTION WIDTH 14.1 % (9.0-15.0); WHITE BLOOD COUNT (AUTO) 6.5 K/uL (4.8-10.8)
[2022-05-23 07:19] LABS: C-REACTIVE PROTEIN QUANT 3.6 mg/dL (0-0.5); CALCIUM 8.9 mg/dL (8.4-11.0); CREATININE 1.17 mg/dL (0.55-1.30); TOTAL BILIRUBIN 0.8 mg/dL (0.0-1.0)
--- NOTE | 2022-05-23 07:27 | NUR ---
PT IS RESTING IN BED AT THIS TIME.PT IS NOT IN RESPIRATORY DISTRESS.ALL NEEDS ARE MET AT THIS TIME.
[2022-05-23 08:00] VITALS: BP_SYST 118
--- NOTE | 2022-05-23 08:00 | NUR ---
Opening Notes Patient is Aox4, to name, , place, and event. No ss of distress noted. Breathing is even and nonlabored, on room air. Vital signs obtained, as documented. No SOB noted. IV patent. Patient is eating breakfast. All safety precaution in place. Patient educated on fall prevention and safety. call light within reach.
[2022-05-23 08:43] LABS: ERYTHROCYTE SEDIMENTATION RATE 48 MM/HR (0-15)
[2022-05-23] MEDS: TAMSULOSIN HCL 0.4 MG CAP PO SCH (09:28)
[2022-05-23] MEDS: FUROSEMIDE 40 MG TABLET PO SCH (09:29)
[2022-05-23] MEDS: CARVEDILOL 6.25 MG TABLET (COREG) PO SCH ×2 (09:29→21:21)
[2022-05-23] MEDS: PANTOPRAZOLE SODIUM 40 MG TAB PO SCH (09:30)
[2022-05-23] MEDS: APIXABAN 2.5 MG TABLET PO SCH ×2 (09:31→21:16)
[2022-05-23] MEDS: SACUBITRIL/VALSARTAN 24 MG-26 MG 1 TABLET PO SCH ×2 (09:36→21:18)
[2022-05-23] MEDS: MUPIROCIN 2% TOPICAL OINTMENT 22 GM NS SCH ×2 (09:37→21:24)
--- NOTE | 2022-05-23 09:54 | NUR ---
notes Patient stated feels bladder full, urinated about half and hour ago. bladder scan done. approximately about 70 cc of urine residual. Morning medication administered. all safety precautions in place and call light within reach.
[2022-05-23 12:00] VITALS: BP_SYST 129
--- NOTE | 2022-05-23 12:00 | NUR ---
NOTES PATIENT IS EATING LUNCH. NO SS OF DISTRESS NOTED. BREATHING IS EVEN AND NONLABORED. DENIES PAIN. NO FACIAL GRIMACE NOTED. BED IS LOCKED, ALARM ON, AND AT LOWEST POSITION. CALL LIGHT WITHIN REACH.
[2022-05-23 16:00] VITALS: BP_SYST 124
--- NOTE | 2022-05-23 16:30 | NUR ---
NOTES PATIENT IS SITTING IN BED. NO SS OF DISTRESS NOTED. PATIENT DENIES SEVERE PAIN. DENIES SOB. SON AT BEDSIDE. SAFETY PRECAUTIONS IN PLACE AND CALL LIGHT WITHIN REACH.
--- NOTE | 2022-05-23 18:59 | NUR ---
CLOSING NOTES PATIENT IS EATING DINNER. PATIENT REQUEST IVP PAIN MEDICATION- MORPHINE. RN ADMINISTERED IVP MORPHINE. NO SS OF DISTRESS NOTED. BREATHING IS EVEN AND NONLABORED, ON ROOM AIR. NO SOB NOTED. IV PATENT. IVF RUNNING. PATIENT IS STABLE. ALL NEEDS MET. BED IS LOCKED, ALARM ON, AND AT LOWEST POSITION. CALL LIGHT WITHIN REACH.
[2022-05-23 19:55] VITALS: BP_SYST 108
--- NOTE | 2022-05-23 19:55 | NUR ---
RECEIVED PT IN BED,AOX4, DENIED SOB,CP, OR ANY PAIN, EVEN AND UNLABORED BREATHING, AMBULATORY TO RESTROOM, STATED HE'S VOIDING WELL NOW, WILL CONTINUE WITH POC,
[2022-05-23] MEDS: LORazepam 2 MG/ML VIAL IVP PRN (21:27)
[2022-05-24] VITALS: BP_SYST 92
[2022-05-24] MEDS: 0.45% NACL 1,000 ML IV SCH (01:35)
[2022-05-24] MEDS: metroNIDAZOLE 500 mg/NS 100 ML IV SCH (06:06)
[2022-05-24] MEDS: SUCRALFATE 1 GM/10 ML UDC GT SCH ×2 (06:07→11:30)
--- NOTE | 2022-05-24 06:27 | NUR ---
PT IN BED,AOX4, DENIED SOB,CP, OR ANY PAIN, EVEN AND UNLABORED BREATHING, AMBULATORY TO RESTROOM, VOIDING AND HAD BM, NO C/O ABOUT URINE RETENTION DURING SHIFT, SAFETY PREC MAINTAINED, LOW BED, CALL LIGHT WITHIN REACH, WILL ENDORSE TO AM RN
[2022-05-24 07:48] LABS: BASOPHILS % (AUTO) 0.8 % (0.0-2.0); EOSINOPHILS # (AUTO) 0.2 K/uL (0.0-0.4); HEMATOCRIT 35.3 % (36-54); HEMOGLOBIN 12.1 g/dL (14.0-18.0); LYMPHOCYTES # (AUTO) 0.8 K/uL (1.0-5.5); LYMPHOCYTES % (AUTO) 14.4 % (20.5-51.5); MEAN CORPUSCULAR HEMOGLOBIN 32 pg (27-31); MEAN CORPUSCULAR HGB CONC 34 % (32-36); MEAN CORPUSCULAR VOLUME 94 fL (79.0-98.0); MONOCYTES # (AUTO) 0.5 K/uL (0.0-1.0); MONOCYTES % (AUTO) 8.3 % (1.7-9.3); NEUTROPHILS % (AUTO) 72.5 % (40.0-70.0); PLATELET COUNT (AUTO) 273 K/uL (130-430); RED BLOOD CELL COUNT(AUTO) 3.75 MIL/uL (4.2-6.2); RED CELL DISTRIBUTION WIDTH 13.8 % (9.0-15.0); WHITE BLOOD COUNT (AUTO) 5.5 K/uL (4.8-10.8)
[2022-05-24 08:00] VITALS: BP_SYST 125
[2022-05-24 08:09] LABS: ERYTHROCYTE SEDIMENTATION RATE 30 MM/HR (0-15)
[2022-05-24 08:26] LABS: C-REACTIVE PROTEIN QUANT 2.3 mg/dL (0-0.5); CALCIUM 8.6 mg/dL (8.4-11.0); CREATININE 1.1 mg/dL (0.55-1.30)
[2022-05-24] MEDS: SACUBITRIL/VALSARTAN 24 MG-26 MG 1 TABLET PO SCH (09:41)
[2022-05-24] MEDS: FUROSEMIDE 40 MG TABLET PO SCH (09:42)
[2022-05-24] MEDS: TAMSULOSIN HCL 0.4 MG CAP PO SCH (09:42)
[2022-05-24] MEDS: PANTOPRAZOLE SODIUM 40 MG TAB PO SCH (09:42)
[2022-05-24] MEDS: CARVEDILOL 6.25 MG TABLET (COREG) PO SCH (09:43)
[2022-05-24] MEDS: MUPIROCIN 2% TOPICAL OINTMENT 22 GM NS SCH (09:43)
[2022-05-24] MEDS: APIXABAN 2.5 MG TABLET PO SCH (09:44)
[2022-05-24] MEDS ORDERED: PRO40 PO (10:56)
[2022-05-24] MEDS ORDERED: FURO-149 PO (10:56)
[2022-05-24] MEDS ORDERED: TAMS0.4C96 PO (10:56)
[2022-05-24] MEDS ORDERED: LEVO750T64 PO ×2 (10:56)
[2022-05-24] MEDS ORDERED: SUCR1ORA4 GT (10:56)
[2022-05-24] MEDS ORDERED: POTA-195 PO (10:56)
[2022-05-24] MEDS ORDERED: METR-154 PO (10:58)
[2022-05-24 11:21] VITALS: BP_SYST 109
[2022-05-24 13:15] VITALS: BP_SYST 125
--- NOTE | 2022-05-24 14:00 | NUR ---
patient dc home, education provided regarding medication managment, disease process and when to return to hospital,ambulated to [facility] and transported home via private auto
== END 2022-05-24 14:45 | disposition home health service (06) | DRG 391 ==
LOC: SED 18:22 → STU 21:53 → OBSVTOIN 05-21 13:27 → SMU 05-22 13:19
PROVIDERS: ADMIT Specialist; ATTEND Specialist
DX: K57.92 Diverticulitis of intestine, part unspecified, without perforation or abscess without bleeding (principal); J96.00 Acute respiratory failure, unspecified whether with hypoxia or hypercapnia; I42.0 Dilated cardiomyopathy; E87.1 Hypo-osmolality and hyponatremia; I24.8 Other forms of acute ischemic heart disease; I11.0 Hypertensive heart disease with heart failure; K76.0 Fatty (change of) liver, not elsewhere classified; N40.1 Benign prostatic hyperplasia with lower urinary tract symptoms; E78.5 Hyperlipidemia, unspecified; I34.0 Nonrheumatic mitral (valve) insufficiency; I45.9 Conduction disorder, unspecified; E88.09 Other disorders of plasma-protein metabolism, not elsewhere classified; Z20.822 Contact with and (suspected) exposure to COVID-19; I50.9 Heart failure, unspecified; D64.9 Anemia, unspecified; Z86.711 Personal history of pulmonary embolism; Z79.01 Long term (current) use of anticoagulants; Z88.8 Allergy status to other drugs, medicaments and biological substances; Z79.899 Other long term (current) drug therapy
CPT/HCPCS: 36415; 71045; 76376; 80048; 80053; 82009; 82150; 82550; 82553; 83605; 83615; 83690; 83880; 84484; 85025; 85610-TC; 85651-TC; 85730-TC; 86140; 87081; 93005; 96372; 96374; 96375; 97116-GP; 97163-GP; 99285; G0378; J1940; J1956; J2060; J2270; J2405; J3490; Q9964

== ENCOUNTER 2022-05-28 19:50 | Inpatient (IN) | payer BC ==
[~2022-05-28] VITALS: Ht 172.7 cm; Wt 90.7 kg
[~2022-05-28 19:50] MED LIST changes: +FURO-149 PO; +METR-154 PO; +PRO40 PO; +SUCR1ORA4 GT; +TAMS0.4C96 PO
--- NOTE | 2022-05-28 19:50 | NUR ---
Patient to ER bed 08 to gown for evaluation. Side rails up.
[2022-05-28 19:59] VITALS: BP_SYST 171
--- NOTE | 2022-05-28 20:03 | NUR ---
DR. PIZARRO AT BEDSIDE WITH PATIENT FOR MSE.
--- NOTE | 2022-05-28 20:04 | NUR ---
Report given to MARTHA ESTES.
--- NOTE | 2022-05-28 20:12 | NUR ---
# 18 gauge angiocath placed to RAC. Use of asceptic technique. Opsite placed over site. Blood return noted. Blood for lab drawn from site. Flushed with 10 cc of normal saline. No evidence of infiltration noted. Patient tolerated well.
--- NOTE | 2022-05-28 20:12 | NUR ---
Portable x-ray done at bedside.
[2022-05-28] MEDS ORDERED: MORPHINE 4 MG INJ. 4 MG/ML VIAL IVP ONE (20:15)
[2022-05-28] MEDS ORDERED: ONDANSETRON HCL 4 MG/2 ML VIAL IVP ONE (20:15)
[2022-05-28 20:18] LABS: BASOPHILS # (AUTO) 0.1 K/uL (0.0-0.2); BASOPHILS % (AUTO) 1.5 % (0.0-2.0); EOSINOPHILS # (AUTO) 0.1 K/uL (0.0-0.4); HEMATOCRIT 39.4 % (36-54); HEMOGLOBIN 13.1 g/dL (14.0-18.0); LYMPHOCYTES # (AUTO) 0.7 K/uL (1.0-5.5); MEAN CORPUSCULAR HEMOGLOBIN 31 pg (27-31); MEAN CORPUSCULAR HGB CONC 33 % (32-36); MEAN CORPUSCULAR VOLUME 94 fL (79.0-98.0); MONOCYTES # (AUTO) 0.5 K/uL (0.0-1.0); MONOCYTES % (AUTO) 10.2 % (1.7-9.3); NEUTROPHILS # (AUTO) 3.1 K/uL (1.8-7.7); NEUTROPHILS % (AUTO) 69.3 % (40.0-70.0); PLATELET COUNT (AUTO) 306 K/uL (130-430); RED BLOOD CELL COUNT(AUTO) 4.18 MIL/uL (4.2-6.2); RED CELL DISTRIBUTION WIDTH 14.3 % (9.0-15.0); WHITE BLOOD COUNT (AUTO) 4.4 K/uL (4.8-10.8)
--- NOTE | 2022-05-28 20:20 | NUR ---
Patient taken to CT.
--- NOTE | 2022-05-28 20:25 | NUR ---
Patient's back from CT.
[2022-05-28 20:33] LABS: ANION GAP 9 (5-15); CALCIUM 8.9 mg/dL (8.4-11.0); CHLORIDE 106 mmol/L (98-107); CREATININE 1.13 mg/dL (0.55-1.30); GLUCOSE 123 mg/dL (70-99); UREA NITROGEN, BLOOD 16 mg/dL (8-21)
--- NOTE | 2022-05-28 20:34 | NUR ---
Complaining of 9/10 abdominal pain. Morphine 4mg IV and zofran 4mg IV given
[2022-05-28 20:35] LABS: GFR AFRICAN AMERICAN 86 mL/min (>90)
[2022-05-28 20:40] LABS: ALANINE AMINOTRANSFERASE 46 U/L (12-78); ALBUMIN 3.3 g/dL (3.4-4.8); ASPARTATE AMINOTRANSFERASE 33 U/L (10-37); TOTAL BILIRUBIN 0.3 mg/dL (0.0-1.0)
[2022-05-28] MEDS ORDERED: FUROSEMIDE 40 MG/4 ML VIAL IVP ONE (20:45)
--- NOTE | 2022-05-28 21:32 | NUR ---
Medication reconciliation completed with information provided by PATIENT. PATIENT WAS GIVEN RECENT MEDICATION RECONCILATION DISCHARGE SUMMARY FROM [facility] AND REPORTS ALL MEDICATIONS ARE CURRENT AND CORRECT. Any prior medication reconciliation on file was reviewed and corrected.
--- NOTE | 2022-05-28 21:45 | NUR ---
Admit bed requested Patient will be admitted to care of . Admitted to TELEMETRY unit. Diagnosis ABDOMINAL PAIN AND CHF Inpatient (Yes or No) Y Observation (Yes or No) N Orientation concerns or request close to nursing station (Yes or No) N Covid Status PENDING On vent orN Isolation requirements N Needs a sitter N From Home (Yes or if No enter name of facility) Y Requires Dialysis (Yes or No) N Med Rec Completed (Yes of No) Y
--- NOTE | 2022-05-28 23:55 | NUR ---
Patient will be admitted to care of DR. MCBRIDE. Admitted to TELEMETRY unit. Will go to room 100A. Belongings list completed. Complete and up to date summary report printed. SBAR report to be given at bedside with opportunity for questions.
[2022-05-29] VITALS: BP_SYST 136
[2022-05-29 00:56] VITALS: BP_SYST 136
--- NOTE | 2022-05-29 04:07 | NUR ---
CONSULTATION PAGED REASON FOR CONSULTATION: ABDOMINAL PAIN WAS CONSULT CALLED? Y PERSON WHO WAS NOTIFIED: MARKIE CONSULTING PHYSICIAN: MIKI BELL [employer] SPECIALTY: GI [employer] PHONE NUMBER: [phone] REQUESTING PHYSICIAN: REED SYED
--- NOTE | 2022-05-29 07:20 | NUR ---
md called back: dr camacho called back , notified md about the pain , md ordered morphine 2 mg [id number] prn , primary rn made aware of the new order .
[2022-05-29] MEDS ORDERED: MORPHINE 2 MG/ML INJ. SYRINGE IVP PRN (07:30)
[2022-05-29] MEDS ORDERED: ACETAMINOPHEN 325 MG TABLET PO PRN (07:30)
--- NOTE | 2022-05-29 07:56 | NUR ---
CONSULTATION PAGED/CALLED Reason for Consultation: [] CHF Person Who was Notified: [] ANA Consulting Physician: [] DR JEFFRIES [employer] Consultant Specialty: [] CARDIO Ordering Physician: [] DR LONGO
[2022-05-29] MEDS ORDERED: ESCITALOPRAM OXALATE 10 MG TABLET PO PRN (08:15)
[2022-05-29] MEDS ORDERED: CITALOPRAM HYDROBROMIDE 20 MG TABLET PO PRN (08:45)
[2022-05-29] MEDS ORDERED: NON-FORMULARY MEDICATION (Sacubitril/Valsartan (Entresto 49 mg-51 mg Tablet) 1 EACH) PO SCH (09:00)
[2022-05-29] MEDS ORDERED: ROSUVASTATIN CALCIUM 5 MG/TAB (CRESTOR) PO SCH (09:00)
[2022-05-29] MEDS: TAMSULOSIN HCL 0.4 MG CAP PO SCH (09:00)
[2022-05-29] MEDS ORDERED: NON-FORMULARY MEDICATION (Apixaban (Eliquis) 5 MG) PO SCH (09:00)
[2022-05-29] MEDS: ATORVASTATIN 20 MG TABLET PO SCH (09:00)
[2022-05-29] MEDS ORDERED: APIXABAN 2.5 MG TABLET PO SCH (09:00)
[2022-05-29] MEDS: PANTOPRAZOLE SODIUM 40 MG TAB PO SCH (09:00)
[2022-05-29] MEDS: CARVEDILOL 6.25 MG TABLET (COREG) PO SCH ×2 (09:30→21:23)
[2022-05-29] MEDS: FUROSEMIDE 40 MG/4 ML VIAL IVP SCH (10:28)
[2022-05-29] MEDS: SUCRALFATE 1 GM/10 ML UDC GT SCH ×3 (10:56→21:21)
[2022-05-29 11:22] VITALS: BP_SYST 119
[2022-05-29] MEDS ORDERED: SACUBITRIL/VALSARTAN 24 MG-26 MG 1 TABLET PO ONE (14:00)
[2022-05-29] MEDS: metroNIDAZOLE 500 MG TABLET PO SCH ×2 (14:19→21:35)
[2022-05-29] MEDS: MORPHINE 4 MG INJ. 4 MG/ML VIAL IVP PRN ×2 (14:23→20:35)
[2022-05-29 15:24] VITALS: BP_SYST 112
[2022-05-29 16:46] LABS: BASOPHILS # (AUTO) 0.1 K/uL (0.0-0.2); BASOPHILS % (AUTO) 1.3 % (0.0-2.0); EOSINOPHILS # (AUTO) 0.1 K/uL (0.0-0.4); EOSINOPHILS % (AUTO) 2.2 % (0.0-4.0); HEMOGLOBIN 13.2 g/dL (14.0-18.0); LYMPHOCYTES # (AUTO) 0.8 K/uL (1.0-5.5); LYMPHOCYTES % (AUTO) 16.4 % (20.5-51.5); MEAN CORPUSCULAR HEMOGLOBIN 32 pg (27-31); MEAN CORPUSCULAR HGB CONC 34 % (32-36); MEAN CORPUSCULAR VOLUME 94 fL (79.0-98.0); MONOCYTES # (AUTO) 0.6 K/uL (0.0-1.0); MONOCYTES % (AUTO) 11.1 % (1.7-9.3); NEUTROPHILS # (AUTO) 3.6 K/uL (1.8-7.7); PLATELET COUNT (AUTO) 302 K/uL (130-430); RED BLOOD CELL COUNT(AUTO) 4.14 MIL/uL (4.2-6.2); RED CELL DISTRIBUTION WIDTH 14.3 % (9.0-15.0); WHITE BLOOD COUNT (AUTO) 5.2 K/uL (4.8-10.8)
[2022-05-29] MEDS ORDERED: BISACODYL 5 MG TABLET.DR (DULCOLAX) PO ONE (17:00)
[2022-05-29 17:04] LABS: ALBUMIN 3.4 g/dL (3.4-4.8); CALCIUM 8.8 mg/dL (8.4-11.0); CREATININE 1.33 mg/dL (0.55-1.30); TOTAL BILIRUBIN 0.4 mg/dL (0.0-1.0)
[2022-05-29] MEDS ORDERED: GOLYTELY / COLYTE SOLUTION 4 LITERS PO ONE (18:00)
--- NOTE | 2022-05-29 19:20 | NUR ---
OPENING NOTE PT LYING UP IN BED WITH EYES OPEN COMPLAINING OF 6/10 PAIN. NO APPARENT DISTRESS NOTED AT THIS TIME. BED IN LOWEST POSITION WITH FALL AND SAFETY PRECAUTIONS IN PLACE. CALL LIGHT WITHIN REACH.
[2022-05-29 20:00] VITALS: BP_SYST 154
[2022-05-29] MEDS: SACUBITRIL/VALSARTAN 24 MG-26 MG 1 TABLET PO SCH (21:24)
[2022-05-30] VITALS: BP_SYST 100
[2022-05-30] MEDS: metroNIDAZOLE 500 MG TABLET PO SCH ×3 (05:51→20:55)
[2022-05-30] MEDS: SUCRALFATE 1 GM/10 ML UDC GT SCH ×4 (05:51→20:55)
--- NOTE | 2022-05-30 06:48 | NUR ---
CLOSING NOTE PT LYING UP IN BED WITH EYES OPEN. NO APPARENT DISTRESS NOTED AT THIS TIME. BED IN LOWEST POSITION WITH FALL AND SAFETY PRECAUTIONS IN PLACE. CALL LIGHT WITHIN REACH.
[2022-05-30] MEDS ORDERED: MEPERIDINE 50 MG/ML VIAL ONE (07:58)
[2022-05-30] MEDS ORDERED: MIDAZOLAM HCL 5 MG/5 ML VIAL ONE ×2 (07:58→12:32)
[2022-05-30 08:00] VITALS: BP_SYST 100
--- NOTE | 2022-05-30 08:00 | NUR ---
Initial notes Alert, pain is control, keep npo for colonoscopy. No distress. Enc to call for help as needed. Will continue to monitor.
--- NOTE | 2022-05-30 08:30 | NUR ---
notes- patient went to the bathroom and he is clear, does not want to do the tap water enema.
[2022-05-30 09:00] LABS: BASOPHILS % (AUTO) 0.6 % (0.0-2.0); EOSINOPHILS # (AUTO) 0.2 K/uL (0.0-0.4); EOSINOPHILS % (AUTO) 4.3 % (0.0-4.0); HEMATOCRIT 39.8 % (36-54); HEMOGLOBIN 13.4 g/dL (14.0-18.0); LYMPHOCYTES % (AUTO) 23.2 % (20.5-51.5); MEAN CORPUSCULAR HEMOGLOBIN 32 pg (27-31); MEAN CORPUSCULAR HGB CONC 34 % (32-36); MEAN CORPUSCULAR VOLUME 94 fL (79.0-98.0); MONOCYTES # (AUTO) 0.6 K/uL (0.0-1.0); MONOCYTES % (AUTO) 15.1 % (1.7-9.3); NEUTROPHILS # (AUTO) 2.3 K/uL (1.8-7.7); NEUTROPHILS % (AUTO) 56.8 % (40.0-70.0); PLATELET COUNT (AUTO) 297 K/uL (130-430); RED BLOOD CELL COUNT(AUTO) 4.22 MIL/uL (4.2-6.2); RED CELL DISTRIBUTION WIDTH 14.1 % (9.0-15.0); WHITE BLOOD COUNT (AUTO) 4.1 K/uL (4.8-10.8)
[2022-05-30] MEDS: ATORVASTATIN 20 MG TABLET PO SCH (09:00)
[2022-05-30] MEDS: FUROSEMIDE 40 MG/4 ML VIAL IVP SCH (09:00)
[2022-05-30 09:24] LABS: INR 1.2 (0.80-1.20); PROTHROMBIN TIME 11.6 SECS (9.5-12.5)
[2022-05-30 09:38] LABS: ALBUMIN 3.2 g/dL (3.4-4.8); CALCIUM 9.1 mg/dL (8.4-11.0); CREATININE 1.12 mg/dL (0.55-1.30); THYROID STIMULATING HORMONE 2.44 uIu/mL (0.34-4.82); TOTAL BILIRUBIN 0.7 mg/dL (0.0-1.0)
[2022-05-30] MEDS ORDERED: levoFLOXacin 500 MG TABLET PO SCH (10:00)
[2022-05-30] MEDS: SACUBITRIL/VALSARTAN 24 MG-26 MG 1 TABLET PO SCH ×2 (10:57→20:55)
[2022-05-30] MEDS: PANTOPRAZOLE SODIUM 40 MG TAB PO SCH (10:58)
[2022-05-30] MEDS: levoFLOXacin 500 MG TABLET PO SCH (10:58)
[2022-05-30] MEDS: TAMSULOSIN HCL 0.4 MG CAP PO SCH (10:58)
[2022-05-30] MEDS: CARVEDILOL 6.25 MG TABLET (COREG) PO SCH ×2 (10:58→20:55)
--- NOTE | 2022-05-30 11:00 | NUR ---
Notes- Resting in bed, still waiting for colonoscopy.
[2022-05-30 11:30] VITALS: BP_SYST 121
--- NOTE | 2022-05-30 12:00 | NUR ---
Notes- Pt went GI lab.
--- NOTE | 2022-05-30 13:30 | NUR ---
Notes Received from GI lab, awake and alert. wants some food. Called dietary and order food for patient. Denies any pain or shortness of breath. Call light within reach.
[2022-05-30 13:50] VITALS: BP_SYST 101
--- NOTE | 2022-05-30 18:28 | NUR ---
CLOSING NOTES ALERT, EATING DINNER, NO DISTRESS.
[2022-05-30] MEDS: MORPHINE 4 MG INJ. 4 MG/ML VIAL IVP PRN (18:39)
[2022-05-30 19:30] VITALS: BP_SYST 97
--- NOTE | 2022-05-30 19:50 | NUR ---
PM ASSESSMENT; - Patient is awake, alert, oriented X4 . Patient oriented to hospital room, call light, toileting, pain management and safety-teach back done. Pt denies any chest pain,pain,sob,or any acute distress. IV site of RAC patent, no s/s any infltration after flushed w/ ns noted. Discussed poc, pain mgmt, and all safety measures, pt verbalized understanding. Maintains MRSA contact isolation. Side railsx2, Call light within reach. Cont to monitor pt.
--- NOTE | 2022-05-31 00:43 | NUR ---
ROUNDS; -Pt is resting in bed comfortably. Pt denies any chest pain,pain,sob,or any acute distress. Maintains MRSA contact isolation. Side railsx2, Call light within reach. Cont to monitor pt.
[2022-05-31 01:11] VITALS: BP_SYST 109
[2022-05-31] MEDS: MORPHINE 4 MG INJ. 4 MG/ML VIAL IVP PRN ×4 (01:12→22:40)
[2022-05-31 06:06] LABS: BASOPHILS # (AUTO) 0.1 K/uL (0.0-0.2); BASOPHILS % (AUTO) 1.8 % (0.0-2.0); EOSINOPHILS # (AUTO) 0.2 K/uL (0.0-0.4); EOSINOPHILS % (AUTO) 3.9 % (0.0-4.0); HEMATOCRIT 38.9 % (36-54); LYMPHOCYTES # (AUTO) 1.2 K/uL (1.0-5.5); LYMPHOCYTES % (AUTO) 23.1 % (20.5-51.5); MEAN CORPUSCULAR HEMOGLOBIN 32 pg (27-31); MEAN CORPUSCULAR HGB CONC 33 % (32-36); MEAN CORPUSCULAR VOLUME 94 fL (79.0-98.0); MONOCYTES # (AUTO) 0.7 K/uL (0.0-1.0); MONOCYTES % (AUTO) 13.4 % (1.7-9.3); NEUTROPHILS # (AUTO) 3.1 K/uL (1.8-7.7); NEUTROPHILS % (AUTO) 57.8 % (40.0-70.0); PLATELET COUNT (AUTO) 296 K/uL (130-430); RED BLOOD CELL COUNT(AUTO) 4.12 MIL/uL (4.2-6.2); RED CELL DISTRIBUTION WIDTH 14.2 % (9.0-15.0); WHITE BLOOD COUNT (AUTO) 5.4 K/uL (4.8-10.8)
[2022-05-31] MEDS: metroNIDAZOLE 500 MG TABLET PO SCH ×3 (06:09→20:58)
[2022-05-31] MEDS: SUCRALFATE 1 GM/10 ML UDC GT SCH ×4 (06:09→20:54)
--- NOTE | 2022-05-31 06:32 | NUR ---
CLOSING NOTES; -Pt is resting in bed comfortably. Pt denies any pain,sob,or any acute distress. Pt's condition stable. Maintains MRSA contact isolation. Side railsx2, Call light within reach. Will endorse to next nurse to cont care.
[2022-05-31 06:33] LABS: ALBUMIN 2.9 g/dL (3.4-4.8); CALCIUM 8.8 mg/dL (8.4-11.0); CREATININE 1.12 mg/dL (0.55-1.30); TOTAL BILIRUBIN 0.5 mg/dL (0.0-1.0)
[2022-05-31 08:00] VITALS: BP_SYST 120
[2022-05-31] MEDS: FUROSEMIDE 40 MG/4 ML VIAL IVP SCH (08:42)
[2022-05-31] MEDS: PANTOPRAZOLE SODIUM 40 MG TAB PO SCH (08:43)
[2022-05-31] MEDS: TAMSULOSIN HCL 0.4 MG CAP PO SCH (08:43)
[2022-05-31] MEDS: CARVEDILOL 6.25 MG TABLET (COREG) PO SCH ×2 (08:43→20:55)
[2022-05-31] MEDS: ATORVASTATIN 20 MG TABLET PO SCH (08:43)
[2022-05-31] MEDS: SACUBITRIL/VALSARTAN 24 MG-26 MG 1 TABLET PO SCH ×2 (08:44→21:00)
[2022-05-31] MEDS: levoFLOXacin 500 MG TABLET PO SCH (09:37)
--- NOTE | 2022-05-31 11:19 | NUR ---
OPENING NOTE; PT RESTING IN BED, NO S/S ACUTE DISTRESS NOTED. IV S/L REMAIN INTACT AND PATENT. NO IV INFILTRATION OR INFECTION NOTED. BED IS LOCKED AND AT LOW POSITION. CALL LIGHT WITHIN REACH. WILL CONT TO MONITOR
--- NOTE | 2022-05-31 11:25 | NUR ---
STOOL SAMPLE COLLECTED BUT NOT WATERY. DISCARDED
[2022-05-31 12:00] VITALS: BP_SYST 118
--- NOTE | 2022-05-31 13:48 | NUR ---
PT VERBALIZED HE TOOK SHOWER. PLACE LEADS BACK ON.
--- NOTE | 2022-05-31 15:48 | NUR ---
NOTES; Lily JAFFE AT BEDSIDE, ASSESSING PT. Addendum: 05/31/22 at 1844 by Edwin Devine RN *
[2022-05-31 16:00] VITALS: BP_SYST 100
--- NOTE | 2022-05-31 16:46 | NUR ---
NPO AFTER MIDNIGHT FOR US ABD
--- NOTE | 2022-05-31 17:00 | NUR ---
PT MRSA(-), MOVED TO ROOM 107A
--- NOTE | 2022-05-31 18:42 | NUR ---
CLOSING NOTE; PT RESTING IN BED, NO S/S ACUTE DISTRESS/SOB NOTED. IV SL INTACT AND PATENT. NO IV INFILTRATION OR INFECTION NOTED. PT AMBULATORY WITH STEADY GAIT. ENCOURAGED TO USE CALL LIGHT FOR ASSISTANCE. PT VERBALIZED UNDERSTANDING. WILL ENDORSE CARE TO RRT NURSE.
[2022-05-31 20:13] VITALS: BP_SYST 107
[2022-05-31] MEDS: DICYCLOMINE HCL 10 MG CAPSULE PO SCH (20:56)
[2022-06-01] MEDS: MORPHINE 4 MG INJ. 4 MG/ML VIAL IVP PRN ×3 (03:45→22:47)
--- NOTE | 2022-06-01 04:32 | NUR ---
pt medicated two times with morphine SQ for pain in LUQ. he denies nausea and vomit. he denies other complaints. NAD noted
[2022-06-01] MEDS: metroNIDAZOLE 500 MG TABLET PO SCH ×3 (06:00→21:32)
[2022-06-01] MEDS: SUCRALFATE 1 GM/10 ML UDC GT SCH ×4 (07:00→21:32)
[2022-06-01 08:00] VITALS: BP_SYST 110
[2022-06-01] MEDS: SACUBITRIL/VALSARTAN 24 MG-26 MG 1 TABLET PO SCH ×2 (09:00→21:33)
[2022-06-01] MEDS: levoFLOXacin 500 MG TABLET PO SCH (09:22)
[2022-06-01] MEDS: DICYCLOMINE HCL 10 MG CAPSULE PO SCH ×3 (09:22→21:33)
[2022-06-01] MEDS: CARVEDILOL 6.25 MG TABLET (COREG) PO SCH ×2 (09:22→21:32)
[2022-06-01] MEDS: TAMSULOSIN HCL 0.4 MG CAP PO SCH (09:23)
[2022-06-01] MEDS: PANTOPRAZOLE SODIUM 40 MG TAB PO SCH (09:23)
[2022-06-01] MEDS: ATORVASTATIN 20 MG TABLET PO SCH (09:23)
[2022-06-01] MEDS: FUROSEMIDE 40 MG/4 ML VIAL IVP SCH (09:23)
[2022-06-01 12:00] VITALS: BP_SYST 112
[2022-06-01] MEDS: METHYL SALICYLATE/MENTH/CAMPH 57 GM CREAM..G. TP SCH ×2 (12:56→21:34)
--- NOTE | 2022-06-01 13:45 | NUR ---
Patient went to room 110B per patient preference.
[2022-06-01 16:00] VITALS: BP_SYST 120
--- NOTE | 2022-06-01 19:05 | NUR ---
Report given to casino shift manager RN for continuity of care. Patient in stable condition. No distress noted.
[2022-06-01 20:00] VITALS: BP_SYST 105
[2022-06-01] MEDS: ACETAMINOPHEN 325 MG TABLET PO PRN (21:33)
[2022-06-02 00:30] VITALS: BP_SYST 119
--- NOTE | 2022-06-02 05:40 | NUR ---
OPENING NOTES: Patient received from AM shift during rounds. Patient is AA&Ox4 able to make needs known with call light within reach. No s/s of distress is noted at this time. Safety measures are in place as per protocol. Will resume care and continue to monitor. 2200: Patient as been assessed as ordered and 2100 medications given. Patient has been provided educations on NPO status for EGD. Patient verbalized understanding. Will continue to monitor.
[2022-06-02] MEDS: SUCRALFATE 1 GM/10 ML UDC GT SCH ×4 (06:00→21:19)
[2022-06-02] MEDS: metroNIDAZOLE 500 MG TABLET PO SCH ×3 (06:00→21:18)
[2022-06-02 06:29] LABS: BASOPHILS # (AUTO) 0.1 K/uL (0.0-0.2); BASOPHILS % (AUTO) 1.3 % (0.0-2.0); EOSINOPHILS # (AUTO) 0.2 K/uL (0.0-0.4); EOSINOPHILS % (AUTO) 3.7 % (0.0-4.0); HEMATOCRIT 41.4 % (36-54); HEMOGLOBIN 13.9 g/dL (14.0-18.0); LYMPHOCYTES # (AUTO) 1.2 K/uL (1.0-5.5); LYMPHOCYTES % (AUTO) 24.6 % (20.5-51.5); MEAN CORPUSCULAR HEMOGLOBIN 31 pg (27-31); MEAN CORPUSCULAR HGB CONC 34 % (32-36); MEAN CORPUSCULAR VOLUME 94 fL (79.0-98.0); MONOCYTES # (AUTO) 0.6 K/uL (0.0-1.0); MONOCYTES % (AUTO) 11.8 % (1.7-9.3); NEUTROPHILS % (AUTO) 58.6 % (40.0-70.0); PLATELET COUNT (AUTO) 300 K/uL (130-430); RED BLOOD CELL COUNT(AUTO) 4.42 MIL/uL (4.2-6.2); RED CELL DISTRIBUTION WIDTH 14.1 % (9.0-15.0); WHITE BLOOD COUNT (AUTO) 5.1 K/uL (4.8-10.8)
[2022-06-02 06:35] LABS: INR 1.2 (0.80-1.20); PROTHROMBIN TIME 11.6 SECS (9.5-12.5)
[2022-06-02 06:56] LABS: ALBUMIN 3.3 g/dL (3.4-4.8); CALCIUM 9.3 mg/dL (8.4-11.0); CREATININE 1.23 mg/dL (0.55-1.30); TOTAL BILIRUBIN 0.5 mg/dL (0.0-1.0)
--- NOTE | 2022-06-02 08:00 | NUR ---
opening notes Patient is Aox4. Ambulatory with steady gait. patient is NPO. Vital signs obtained, as documented. No ss of distress noted. Breathing is even and nonlabored, on room air. Patient denies pain. Bed is locked, alarm on, and at lowest position. Call light within reach.
[2022-06-02 08:43] VITALS: BP_SYST 109
[2022-06-02] MEDS: CARVEDILOL 6.25 MG TABLET (COREG) PO SCH ×2 (09:00→21:18)
[2022-06-02] MEDS: FUROSEMIDE 40 MG/4 ML VIAL IVP SCH (09:00)
--- NOTE | 2022-06-02 09:00 | NUR ---
notes patient left for EGD. Consents signed and verified with GI nurse.
[2022-06-02] MEDS ORDERED: MEPERIDINE 50 MG/ML VIAL ONE (09:21)
[2022-06-02] MEDS ORDERED: MIDAZOLAM HCL 5 MG/5 ML VIAL ONE (09:22)
[2022-06-02] MEDS: MIDAZOLAM HCL 5 MG/5 ML VIAL ONE ×2 (09:47→09:49)
--- NOTE | 2022-06-02 10:30 | NUR ---
NOTES PATIENT RETURNED TO UNIT FROM EGD. NO SS OF DISTRESS NOTED. NO SOB, ON ROOM AIR. VITAL SIGNS OBTAINED. PATIENT REQUEST PAIN MEDICATION FOR MILD PAIN STATES 3/10 RUQ ABDOMINAL PAIN. PAIN MEDICATION ADMINISTERED. BED IS LOCKED, ALARM ON, AND AT LOWEST POSITION. CALL LIGHT WITHIN REACH.
[2022-06-02 10:33] VITALS: BP_SYST 95
[2022-06-02] MEDS: PANTOPRAZOLE SODIUM 40 MG TAB PO SCH (10:36)
[2022-06-02] MEDS: levoFLOXacin 500 MG TABLET PO SCH (10:36)
[2022-06-02] MEDS: DICYCLOMINE HCL 10 MG CAPSULE PO SCH ×3 (10:36→21:17)
[2022-06-02] MEDS: ATORVASTATIN 20 MG TABLET PO SCH (10:36)
[2022-06-02] MEDS: TAMSULOSIN HCL 0.4 MG CAP PO SCH (10:37)
[2022-06-02] MEDS: ACETAMINOPHEN 325 MG TABLET PO PRN (10:38)
[2022-06-02] MEDS: METHYL SALICYLATE/MENTH/CAMPH 57 GM CREAM..G. TP SCH ×3 (10:41→21:19)
[2022-06-02] MEDS: SACUBITRIL/VALSARTAN 24 MG-26 MG 1 TABLET PO SCH ×2 (10:44→21:17)
[2022-06-02 12:00] VITALS: BP_SYST 97
--- NOTE | 2022-06-02 12:00 | NUR ---
notes patient is eating lunch. denies pain. no ss of distress noted. patient is ambulating. gait steady. educated on safety and fall precautions. patient verbalized understanding. safety precautions in place and call light within reach.
[2022-06-02 16:00] VITALS: BP_SYST 99
--- NOTE | 2022-06-02 16:00 | NUR ---
Notes no change from previous assessment. denies severe pain. no ss of distress noted. patient is stable at this time.
[2022-06-02] MEDS: MORPHINE 4 MG INJ. 4 MG/ML VIAL IVP PRN (17:46)
--- NOTE | 2022-06-02 18:54 | NUR ---
closing notes patient is eating dinner. No ss of distress noted. Breathing is even and nonlabored, room air. Patient states pain is getting better. IV patent. Patient stable. All needs met. Bed is locked and in low position. Call light within reach.
[2022-06-02 20:00] VITALS: BP_SYST 98
[2022-06-02] MEDS: LORazepam 1 MG TABLET PO PRN (21:19)
--- NOTE | 2022-06-02 23:40 | NUR ---
OPENING NOTES: Patient received from AM shift nurse during change of shift. Patient is AA&Ox4 able to make needs known, denies pain or distress at this time and has call light within reach. Chest rise is even and unlabored on RA. Safety measures are in place as per protocol, will resume care. 2200: Patient has been assessed as indicated and patient has received evening scheduled medications as ordered. Patient tolerated it well. Will continue to monitor.
[2022-06-03 00:30] VITALS: BP_SYST 96
[2022-06-03] MEDS: SUCRALFATE 1 GM/10 ML UDC GT SCH ×4 (06:05→21:06)
[2022-06-03] MEDS: metroNIDAZOLE 500 MG TABLET PO SCH ×3 (06:05→21:06)
--- NOTE | 2022-06-03 08:00 | NUR ---
OPENING NOTES PATIENT IS AOX4. NO SS OF DISTRESS NOTED. BREATHING IS EVEN AND NONLABORED, ON ROOM AIR. AMBULATORY WITH STEADY GAIT. DENIES SEVERE PAIN. VITAL SIGNS OBTAINED, DOCUMENTED. PATIENT IS EATING BREAKFAST. TOLERATING WELL. IV PATENT. BED IS LOCKED AND AT LOWEST POSITION. CALL LIGHT WITHIN REACH.
[2022-06-03 08:27] VITALS: BP_SYST 99
[2022-06-03] MEDS: FUROSEMIDE 40 MG/4 ML VIAL IVP SCH (09:00)
[2022-06-03] MEDS: CARVEDILOL 6.25 MG TABLET (COREG) PO SCH ×2 (09:00→21:00)
[2022-06-03] MEDS: PANTOPRAZOLE SODIUM 40 MG TAB PO SCH (09:22)
[2022-06-03] MEDS: DICYCLOMINE HCL 10 MG CAPSULE PO SCH ×3 (09:22→21:06)
[2022-06-03] MEDS: ATORVASTATIN 20 MG TABLET PO SCH (09:22)
[2022-06-03] MEDS: levoFLOXacin 500 MG TABLET PO SCH (09:23)
[2022-06-03] MEDS: TAMSULOSIN HCL 0.4 MG CAP PO SCH (09:23)
[2022-06-03] MEDS: SACUBITRIL/VALSARTAN 24 MG-26 MG 1 TABLET PO SCH ×2 (09:27→21:06)
[2022-06-03] MEDS: METHYL SALICYLATE/MENTH/CAMPH 57 GM CREAM..G. TP SCH ×3 (09:29→21:07)
[2022-06-03 12:00] VITALS: BP_SYST 102
--- NOTE | 2022-06-03 12:00 | NUR ---
NOTES PATIENT IS EATING LUNCH. DENIES PAIN. NO DISTRESS NOTED. PATIENT STABLE AT THIS TIME.
[2022-06-03] MEDS: MORPHINE 4 MG INJ. 4 MG/ML VIAL IVP PRN (14:26)
--- NOTE | 2022-06-03 14:54 | NUR ---
DISCHARGE PLANNING PER DR VARELA, PATIENT WILL BE DISCHARGE 06/04/22. PLAN OUT PATIENET COLONOSCOPY. PATIENT IS AWARE
[2022-06-03] MEDS ORDERED: SACU1TAB PO (14:59)
[2022-06-03] MEDS ORDERED: LEVO-62 PO (14:59)
[2022-06-03] MEDS ORDERED: METR-154 PO (14:59)
[2022-06-03 16:00] VITALS: BP_SYST 99
--- NOTE | 2022-06-03 16:00 | NUR ---
notes patient appears to be sleeping, eyes closed. no facial grimace. no distress noted. all safety precautions in place. call light within reach.
[2022-06-03] MEDS: LIPASE/PROTEASE/AMYLASE 1 CAP PO SCH (17:42)
--- NOTE | 2022-06-03 18:57 | NUR ---
closing notes Patient is eating dinner. no ss of distress noted. denies pain. No SOB noted. Breathing is even and nonlabored, on room air. Iv patent. Patient is stable. all needs met. Bed is locked and at lowest position. Call light within reach.
[2022-06-03 20:00] VITALS: BP_SYST 101
[2022-06-03] MEDS: LORazepam 1 MG TABLET PO PRN (21:06)
[2022-06-04] VITALS: BP_SYST 100
[2022-06-04] MEDS: SUCRALFATE 1 GM/10 ML UDC GT SCH ×2 (06:16→11:30)
[2022-06-04] MEDS: metroNIDAZOLE 500 MG TABLET PO SCH (06:16)
[2022-06-04 08:00] VITALS: BP_SYST 125
[2022-06-04] MEDS: TAMSULOSIN HCL 0.4 MG CAP PO SCH (08:38)
[2022-06-04] MEDS: ATORVASTATIN 20 MG TABLET PO SCH (08:38)
[2022-06-04] MEDS: LIPASE/PROTEASE/AMYLASE 1 CAP PO SCH (08:38)
[2022-06-04] MEDS: PANTOPRAZOLE SODIUM 40 MG TAB PO SCH (08:38)
[2022-06-04] MEDS: DICYCLOMINE HCL 10 MG CAPSULE PO SCH (08:39)
[2022-06-04] MEDS: CARVEDILOL 6.25 MG TABLET (COREG) PO SCH (08:39)
[2022-06-04] MEDS: levoFLOXacin 500 MG TABLET PO SCH (08:39)
[2022-06-04] MEDS: SACUBITRIL/VALSARTAN 24 MG-26 MG 1 TABLET PO SCH (08:40)
[2022-06-04] MEDS: METHYL SALICYLATE/MENTH/CAMPH 57 GM CREAM..G. TP SCH (08:40)
[2022-06-04] MEDS: FUROSEMIDE 40 MG/4 ML VIAL IVP SCH (08:40)
--- NOTE | 2022-06-04 11:48 | NUR ---
CHF PROTOCOL PATIENT HAS AN APPOINTMENT TO SEE HIS PCP DR TELLEZ ON 07/20/22 AT 10;45 Am. PER PATIENT THAT IS THE EARLIEST APPT. THAT IS AVAILABLE TO SEE HIS PCP FOR FOLLOW UP APPT.
[2022-06-04 12:00] VITALS: BP_SYST 113
--- NOTE | 2022-06-04 13:38 | NUR ---
CHF PROTOCOL LATEST APPOINTMENT WITH DR TELLEZ CARDIO, IS 06/18 AT 1430. PRIMARY MD [facility] OFFICE NOT TAKING 3RD REPUBLICAN APPOINTMENT DUE TO NO SHOW. PATIENT WILL CALL HIS OWN APPOINTMENT WITH PRIMARY
--- NOTE | 2022-06-04 13:52 | NUR ---
pt a&o. vss. d/c to home with instructions per md order. no c/o pain. piv removed.
== END 2022-06-04 14:00 | disposition home health service (06) | DRG 291 ==
LOC: SED 19:50 → STU 21:42 → SMU 05-31 16:05
PROVIDERS: ADMIT Internal Medicine; ATTEND Internal Medicine
PROC: 0DJD8ZZ Inspection of Lower Intestinal Tract, Via Natural or Artificial Opening Endoscopic (ICD-10-PCS; principal; 2022-05-30 09:15)
PROC: 0DB98ZX Excision of Duodenum, Via Natural or Artificial Opening Endoscopic, Diagnostic (ICD-10-PCS; 2022-06-02)
PROC: 0DB78ZX Excision of Stomach, Pylorus, Via Natural or Artificial Opening Endoscopic, Diagnostic (ICD-10-PCS; 2022-06-02)
DX: I11.0 Hypertensive heart disease with heart failure (principal); I50.23 Acute on chronic systolic (congestive) heart failure; K57.92 Diverticulitis of intestine, part unspecified, without perforation or abscess without bleeding; I42.0 Dilated cardiomyopathy; K29.70 Gastritis, unspecified, without bleeding; K52.89 Other specified noninfective gastroenteritis and colitis; E66.9 Obesity, unspecified; E78.5 Hyperlipidemia, unspecified; Z20.822 Contact with and (suspected) exposure to COVID-19; I34.0 Nonrheumatic mitral (valve) insufficiency; K63.5 Polyp of colon; K25.9 Gastric ulcer, unspecified as acute or chronic, without hemorrhage or perforation; K64.8 Other hemorrhoids; Z79.01 Long term (current) use of anticoagulants; Z80.1 Family history of malignant neoplasm of trachea, bronchus and lung; Z82.49 Family history of ischemic heart disease and other diseases of the circulatory system; Z86.711 Personal history of pulmonary embolism; Z86.718 Personal history of other venous thrombosis and embolism; Z87.891 Personal history of nicotine dependence; Z68.30 Body mass index [BMI] 30.0-30.9, adult; Z91.018 Allergy to other foods; Z79.2 Long term (current) use of antibiotics; Z79.899 Other long term (current) drug therapy; Z56.0 Unemployment, unspecified
CPT/HCPCS: 36415; 43239; 45378; 71045; 76376; 76700-TC; 80048; 80053; 80061; 83735; 83880; 84443; 84484; 85025; 85610-TC; 87081; 88305; 88312; 88313; 93005; 96374; 96375; 99285; G0378; J1940; J2175; J2250; J2270; J2405

== ENCOUNTER 2022-06-27 13:10 | Emergency (ER) | payer BC ==
[~2022-06-27] VITALS: Ht 172.7 cm; Wt 88.0 kg
[~2022-06-27 13:10] MED LIST changes: -AMOX500C2 PO; -FURO-150 PO; +LEVO-62 PO; -LEVO750T64 PO; +SACU1TAB PO; -ZIT250 PO
[2022-06-27 13:23] VITALS: BP_SYST 129
--- NOTE | 2022-06-27 13:40 | NUR ---
PT BIB SELF AWAKE AND ALERT AOX4. NO SOB OR DISTRESS. PT C/O ABDOMINAL PAIN 10/06 STARTING TODAY. PT HAS HX OF DIVERCOLITIS.
--- NOTE | 2022-06-27 13:45 | NUR ---
MD DR KLINE AT BEDSIDE
[2022-06-27 15:54] LABS: BASOPHILS # (AUTO) 0.1 K/uL (0.0-0.2); EOSINOPHILS # (AUTO) 0.1 K/uL (0.0-0.4); HEMATOCRIT 41.7 % (36-54); HEMOGLOBIN 14.1 g/dL (14.0-18.0); LYMPHOCYTES # (AUTO) 1.3 K/uL (1.0-5.5); LYMPHOCYTES % (AUTO) 23.6 % (20.5-51.5); MEAN CORPUSCULAR HEMOGLOBIN 31 pg (27-31); MEAN CORPUSCULAR HGB CONC 34 % (32-36); MEAN CORPUSCULAR VOLUME 92 fL (79.0-98.0); MONOCYTES # (AUTO) 0.4 K/uL (0.0-1.0); MONOCYTES % (AUTO) 7.2 % (1.7-9.3); NEUTROPHILS # (AUTO) 3.8 K/uL (1.8-7.7); NEUTROPHILS % (AUTO) 67.2 % (40.0-70.0); PLATELET COUNT (AUTO) 260 K/uL (130-430); RED BLOOD CELL COUNT(AUTO) 4.52 MIL/uL (4.2-6.2); RED CELL DISTRIBUTION WIDTH 14.1 % (9.0-15.0); WHITE BLOOD COUNT (AUTO) 5.7 K/uL (4.8-10.8)
[2022-06-27 16:11] LABS: ANION GAP 6 (5-15); CALCIUM 9.5 mg/dL (8.4-11.0); CHLORIDE 106 mmol/L (98-107); CREATININE 1.05 mg/dL (0.55-1.30); GFR AFRICAN AMERICAN 93 mL/min (>90); GLUCOSE 92 mg/dL (70-99); UREA NITROGEN, BLOOD 9 mg/dL (8-21)
[2022-06-27 16:24] LABS: ALANINE AMINOTRANSFERASE 41 U/L (12-78); ALBUMIN 3.7 g/dL (3.4-4.8); AMYLASE 35 U/L (0-100); ASPARTATE AMINOTRANSFERASE 27 U/L (10-37); LIPASE 225 U/L (73-393); TOTAL BILIRUBIN 0.4 mg/dL (0.0-1.0)
[2022-06-27 16:31] LABS: C-REACTIVE PROTEIN QUANT < 0.2 mg/dL (0-0.5)
[2022-06-27] MEDS ORDERED: TRAM50TA2 PO (16:51)
[2022-06-27] MEDS ORDERED: OMEP20CA15 PO (16:51)
--- NOTE | 2022-06-27 17:00 | NUR ---
Patient given written and verbal discharge instructions and verbalizes understanding. ER MD DR KLINE discussed with patient the results and treatment provided. Patient in stable condition. ID arm band removed. Patient educated on pain management and to follow up with PMD. Pain Scale 6/10. Opportunity for questions provided and answered. Medication side effect fact sheet provided.
[2022-06-27 17:50] VITALS: BP_SYST 126
--- NOTE | 2022-06-27 17:50 | NUR ---
Patient given written and verbal discharge instructions and verbalizes understanding. ER MD discussed with patient the results and treatment provided. Patient in stable condition. ID arm band removed. Rx of OMEPRAZOLE AND TRAMADOL given. Patient educated on pain management and to follow up with PMD. Pain Scale 0/10 Opportunity for questions provided and answered. Medication side effect fact sheet provided.
== END 2022-06-27 17:00 | disposition home or self-care (01) ==
LOC: SED 13:10
DX: R07.9 Chest pain, unspecified (principal); R10.84 Generalized abdominal pain; R14.0 Abdominal distension (gaseous); I10 Essential (primary) hypertension; E78.5 Hyperlipidemia, unspecified; Z91.013 Allergy to seafood; Z79.899 Other long term (current) drug therapy
CPT/HCPCS: 36415; 71045; 76376; 80053; 82150; 83605; 83690; 84484; 85025; 86140; 99285

== ENCOUNTER 2023-03-31 17:34 | Emergency (ER) | payer BC ==
[~2023-03-31] VITALS: Ht 172.7 cm; Wt 79.4 kg
[~2023-03-31 17:34] MED LIST changes: +OMEP20CA15 PO; +TRAM50TA2 PO
[2023-03-31 17:53] VITALS: BP_SYST 135; PULSE 101; RESP 22; TEMP 98.3; O2SAT 97
[2023-03-31 18:57] LABS: BILIRUBIN,URINE NEGATIVE (NEGATIVE); BLOOD, URINE NEGATIVE (NEGATIVE); CLARITY/URINE CLEAR (CLEAR); COLOR,URINE YELLOW (YELLOW); GLUCOSE,URINE 3+ (NEGATIVE); KETONES,URINE TRACE (NEGATIVE); LEUKOCYTE ESTERASE ,URINE NEGATIVE (NEGATIVE); NITRITE, URINE NEGATIVE (NEGATIVE); PH,URINE 6.5 (5.0-8.0); PROTEIN URINE TRACE (NEGATIVE); UROBILINOGEN,URINE 0.2 (0.2-1.0)
[2023-03-31 19:13] LABS: BASOPHILS # (AUTO) 0.1 K/uL (0.0-0.2); BASOPHILS % (AUTO) 0.9 % (0.0-2.0); EOSINOPHILS # (AUTO) 0.1 K/uL (0.0-0.4); EOSINOPHILS % (AUTO) 0.9 % (0.0-4.0); HEMATOCRIT 40.1 % (36-54); HEMOGLOBIN 13.6 g/dL (14.0-18.0); LYMPHOCYTES # (AUTO) 1.5 K/uL (1.0-5.5); LYMPHOCYTES % (AUTO) 21.5 % (20.5-51.5); MEAN CORPUSCULAR HEMOGLOBIN 32 pg (27-31); MEAN CORPUSCULAR HGB CONC 34 % (32-36); MEAN CORPUSCULAR VOLUME 93 fL (79.0-98.0); MONOCYTES # (AUTO) 0.5 K/uL (0.0-1.0); MONOCYTES % (AUTO) 6.5 % (1.7-9.3); NEUTROPHILS # (AUTO) 4.9 K/uL (1.8-7.7); NEUTROPHILS % (AUTO) 70.2 % (40.0-70.0); PLATELET COUNT (AUTO) 250 K/uL (130-430); RED BLOOD CELL COUNT(AUTO) 4.31 MIL/uL (4.2-6.2); RED CELL DISTRIBUTION WIDTH 14.7 % (9.0-15.0)
[2023-03-31 19:43] LABS: ALBUMIN 3.5 g/dL (3.4-4.8); CALCIUM 7.8 mg/dL (8.4-11.0); CREATININE 1.08 mg/dL (0.55-1.30); POTASSIUM 4.1 mmol/L (3.5-5.1); TOTAL BILIRUBIN 0.3 mg/dL (0.0-1.0); TOTAL PROTEIN, SERUM 7.1 g/dL (6.4-8.3)
[2023-03-31 19:55] LABS: BACTERIA,URINE RARE /HPF (None Seen); RBC,URINE NONE SEEN /HPF (0-3); WBC,URINE 0-3 /HPF (0-3)
[2023-03-31 19:56] LABS: MUCUS,URINE 1+ /LPF (None Seen)
[2023-03-31] MEDS ORDERED: KETOROLAC TROMETHAMINE 30 MG VIAL IM ONE (22:15)
[2023-04-01] MEDS ORDERED: HYDR-3917 PO (01:06)
[2023-04-01] MEDS ORDERED: HYDROcodone/ACETAMIN 5-325 MG TAB (NORCO/ VICODIN) PO ONE (01:15)
== END 2023-04-01 01:13 | disposition home or self-care (01) ==
LOC: SED 17:34
DX: M54.12 Radiculopathy, cervical region (principal); M54.50 Low back pain, unspecified; I11.0 Hypertensive heart disease with heart failure; I50.9 Heart failure, unspecified; E78.5 Hyperlipidemia, unspecified; R10.9 Unspecified abdominal pain; Z91.013 Allergy to seafood; Z79.899 Other long term (current) drug therapy
CPT/HCPCS: 99285; 74176; 80053; 81001; 85025; 36415; 76376; 96372; 81000; 81015; J1885